=== PATIENT | female | born 1950 | race Hispanic/Latino ===

== ENCOUNTER 2018-06-27 06:20 | Emergency (ER) | payer OTHER ==
[2018-06-27] MEDS ORDERED: MECLIZINE HCL 12.5 MG TAB ONE (07:04)
[2018-06-27 07:10] LABS: Absolute Lymphocytes (CBC) 2.3 K/uL (0.7-4.9); Absolute Monocytes 0.3 K/uL (0.1-1.3); Basophils % 0.6 % (0-1.3); Eosinophils % 1.7 % (0-4.4); MPV 8.9 fL (7.6-11.3); Monocytes % 7.2 % (3.3-12.3); RBC Red Blood Cell Count 4.58 M/uL (3.86-4.86)
[2018-06-27 07:22] LABS: Protime INR 0.9
[2018-06-27 07:27] LABS: ALT/SGPT 33 U/L (12-78); AST/SGOT 17 U/L (15-37); Albumin 4.4 g/dL (3.4-5.0); Alkaline Phosphatase 85 U/L (45-117); BUN Blood Urea Nitrogen 15 mg/dL (7-18); Bicarbonate 28 mmol/L (21-32); Bilirubin Direct < 0.1 mg/dL (0-0.2); Bilirubin Total 0.3 mg/dL (0.2-1.0); CKMB Creatine Kinase MB 1.1 ng/mL (0.3-3.6); Creatine Phosphokinase 87 U/L (26-192); Glucose Level 98 mg/dL (74-106); Lipase 199 U/L (73-393); Magnesium 2.6 mg/dL (1.8-2.4); Potassium 3.8 mmol/L (3.5-5.1); Protein, Total 8.5 g/dL (6.4-8.2); Sodium Level 141 mmol/L (136-145); Troponin (Emerg Dept Use Only) < 0.02 ng/mL (0.0-0.045)
[2018-06-27] MEDS ORDERED: KETOROLAC 30 MG/ML INJ ONE (07:36)
[2018-06-27] MEDS ORDERED: NA CHLORIDE 0.9% 1,000 ML ONE (07:36)
--- NOTE | 2018-06-27 07:54 | ER ---
Nurse's Notes [facility] Name: Fariba Rowland Age: 68 yrs Sex: Female : 1950 Arrival Date: 06/27/2018 Time: 06:28 Bed 7 Private MD: Diagnosis: Dizziness and giddiness;Volume depletion Presentation: 06/27 06:30 Presenting complaint: Patient states: dizziness, headache, sinus pressure started today ak1 when she woke up. pt denies N/V. Transition of care: patient was not received from another setting of care. Onset of symptoms was June 27, 2018. Risk Assessment: Do you want to hurt yourself or someone else? Patient reports no desire to harm self or others. Care prior to arrival: None. 06:30 Method Of Arrival: EMS: [facility] ak1 06:30 Acuity: TRAMAINE 3 ak1 07:37 Initial Sepsis Screen: Does the patient meet any 2 criteria? No. Patient's initial sv sepsis screen is negative. Does the patient have a suspected source of infection? No. Patient's initial sepsis screen is negative. Triage Assessment: 06:32 Headache History: Other pt with hx vertigo stated this episode is similar. General: ak1 Appears uncomfortable, Behavior is calm, cooperative. Pain: Pain level that patient reports is acceptable is 4 out of 10 on a pain scale. Pain began 1 hour ago. Also complains of inability to perform activities of daily living. EENT: Reports sinus pressure. Neuro: Level of Consciousness is awake, alert, obeys commands, Oriented to person, place, time, situation, Osha Inspector are equal bilaterally Moves all extremities. Speech is normal. Cardiovascular: No deficits noted. Respiratory: No deficits noted. GI: No signs and/or symptoms were reported involving the gastrointestinal system. : No signs and/or symptoms were reported regarding the genitourinary system. Derm: No signs and/or symptoms reported regarding the dermatologic system. Musculoskeletal: No signs and/or symptoms reported regarding the musculoskeletal system. Historical: - Allergies: 06:32 No Known Allergies; ak1 - Home Meds: 06:32 Meclizine Oral [Active]; ak1 - PMHx: 06:32 vertigo; ak1 - PSHx: 06:32 None; ak1 - Immunization history:: Adult Immunizations unknown. - Social history:: Smoking status: Patient/guardian denies using tobacco. - Ebola Screening: : No symptoms or risks identified at this time. Screenin:34 Abuse screen: Denies threats or abuse. Denies injuries from another. Nutritional ak1 screening: No deficits noted. Tuberculosis screening: No symptoms or risk factors identified. Fall Risk None identified. Assessment: 06:49 Reassessment: Patient appears in no apparent distress at this time. No changes from ak1 previously documented assessment. see triage assessment. 07:33 General: Appears in no apparent distress. comfortable, well developed, Behavior is sv calm, cooperative, appropriate for age. Pain: Complains of pain in low back area Pain currently is 3 out of 10 on a pain scale. Neuro: Level of Consciousness is awake, alert, obeys commands, Oriented to person, place, time, situation, Moves all extremities. Full function. Respiratory: Respiratory effort is even, unlabored, Respiratory pattern is regular, symmetrical. Derm: Skin is pink, warm \T\ dry. 07:56 Reassessment: Pt to get her IVF before discharge, infusing at this time. sv 08:39 Reassessment: Patient appears in no apparent distress at this time. Patient and/or sv family updated on plan of care and expected duration. Pain level reassessed. Patient is alert, oriented x 3, equal unlabored respirations, skin warm/dry/pink. Patient denies pain at this time. Patient states feeling better. Patient states symptoms have improved. Vital Signs: 06:29 BP 143 / 82 LA Supine (auto/reg); Pulse 69; Resp 20; Temp 99; Pulse Ox 100% on R/A; ak1 Weight 63.05 kg (R); Height 5 ft. 3 in. (160.02 cm) (R); Pain 0/10; 06:35 BP 159 / 87 LA Sitting (auto/reg); Pulse 70; Resp 18; Pulse Ox 99% ; ak1 06:45 BP 132 / 89 LA Standing (auto/reg); Pulse 100; Resp 20; Pulse Ox 100% on R/A; ak1 07:37 BP 155 / 66; Pulse 68; Resp 20; Pulse Ox 99% ; sv 08:30 Pain 0/10; sv 08:39 BP 139 / 88; Pulse 65; Resp 16; Pulse Ox 99% ; sv 06:29 Body Mass Index 24.62 (63.05 kg, 160.02 cm) ak1 NIH Stroke Scale Scores: 06:56 NIHSS Score: 0 kb ED Course: 06:28 Patient arrived in ED. ak1 06:29 Zuleika Warner [facility]-C [facility]. kb 06:29 Joe Dougherty MD is Attending Physician. kb 06:29 Arm band placed on Patient placed in an exam room, on a stretcher, on pulse oximetry, ak1 Patient notified of wait time. 06:31 Triage completed. ak1 06:34 Patient has correct armband on for positive identification. Bed in low position. Call ak1 light in reach. Side rails up X2. Adult w/ patient. Pulse ox on. NIBP on. 06:55 Inserted saline lock: 22 gauge in left antecubital area, using aseptic technique. Blood jd3 collected. 07:22 Manual Differential Sent. sv 07:31 Ute Lee, RN is Primary Nurse. sv 08:37 No provider procedures requiring assistance completed. IV discontinued, intact, sv bleeding controlled, No redness/swelling at site. Pressure dressing applied. Administered Medications: 06:56 Drug: Meclizine 25 mg Route: PO; ak1 07:32 Follow up: Response: No adverse reaction sv 07:31 Drug: NS 0.9% 1000 ml Route: IV; Rate: 1000 ml; Site: left antecubital; sv 08:30 Follow up: Response: No adverse reaction; IV Status: Completed infusion; IV Intake: sv 1000ml 07:31 Drug: TORadol 30 mg Route: IVP; Site: left antecubital; sv 08:30 Follow up: Pain 0/10 Adult; Response: No adverse reaction; Marked relief of symptoms; sv Pain is decreased Intake: 08:30 IV: 1000ml; Total: 1000ml. sv Outcome: 07:53 Discharge ordered by . kb 08:38 Discharged to home via wheelchair, with family. sv 08:38 Condition: stable 08:38 Discharge instructions given to patient, Instructed on discharge instructions, follow up and referral plans. medication usage, Demonstrated understanding of instructions, follow-up care, medications, Prescriptions given X 1. 09:07 Patient left the ED. ss NIH Stroke Scale - NIH Stroke Score Date: 06/27/2018 Time: 06:56 Total Score = 0 1a. Level of Consciousness (LOC) - 0(Alert) 1b. Level of Consciousness (LOC) (Year \T\ Age) - 0(Both) 1c. LOC Commands (Open \T\ Closes Eyes/Handle Finisher) - 0(Both) 2. Best Gaze (Lateral Gaze Paresis) - 0(Normal) 3. Visual Field Loss - 0(No visual loss) 4. Facial Palsy - 0(Normal) 5a. Left Arm: Motor (10-second hold) - 0(No drift) 5b. Right Arm: Motor (10-second hold) - 0(No drift) 6a. Left Leg: Motor (5-second hold - always test supine) - 0(No drift) 6b. Right Leg: Motor (5-second hold - always test supine) - 0(No drift) 7. Limb Ataxia (finger/nose \T\ heel/craig - test with eyes open) - 0(Absent) 8. Sensory Loss (pinprick arms/legs/face) - 0(Normal) 9. Best Language: Aphasia (description/naming/reading) - 0(No aphasia) 10. Dysarthria (speech clarity - read or repeat words) - 0(Normal) 11. Extinction and Inattention (visual/tactile/auditory/spatial/personal) - 0(No abnormality) Initials: kb Signatures: Zuleika Warner, WOOD CUT ENGRAVER-C WOOD CUT ENGRAVER-CkUte Ly, Blank Mallory RN, RN RN ss Jessi Black RN RN ak1 Derrick Cano RN RN jd3
--- NOTE | 2018-06-27 07:54 | EDPHYS ---
Physician Documentation [facility] Name: Fariba Rowland Age: 68 yrs Sex: Female : 1950 Arrival Date: 06/27/2018 Time: 06:28 Bed 7 Private MD: ED Physician Joe Dougherty HPI: 06/27 06:57 This 68 yrs old Female presents to ER via EMS with complaints of Dizziness, kb Headache. 06:57 The patient presents with dizziness. Onset: The symptoms/episode began/occurred 30 kb minute(s) ago. Context: occurred at home, occurred while the patient was getting up from bed, just prior to the episode the patient experienced headache. Modifying factors: The symptoms are alleviated by nothing, the symptoms are aggravated by movement of head, changing position. Associated signs and symptoms: Pertinent positives: headache. Severity of symptoms: At their worst the symptoms were mild moderate in the emergency department the symptoms are unchanged. Patient's baseline: Neuro: alert and fully oriented, Motor: no deficits, Ambulation: walks without assistance, Speech: normal. The patient has experienced similar episodes in the past, a few times, and the symptoms today are exactly the same, to previous vertigo. The patient has not recently seen a physician. Pt reports she has had a headache for a day, feels like ones she has had before, and then had dizziness when she got out of bed this morning to go to the bathroom. Reports these symptoms are the same as she has had before when she was diagnosed with vertigo. Also reports lower back pain that has been going on for a while after moving a bed at home. . Historical: - Allergies: 06:32 No Known Allergies; ak1 - Home Meds: 06:32 Meclizine Oral [Active]; ak1 - PMHx: 06:32 vertigo; ak1 - PSHx: 06:32 None; ak1 - Immunization history:: Adult Immunizations unknown. - Social history:: Smoking status: Patient/guardian denies using tobacco. - Ebola Screening: : No symptoms or risks identified at this time. ROS: 06:56 Constitutional: Negative for fever, chills, and weight loss, Neck: Negative for injury, kb pain, and swelling, Cardiovascular: Negative for chest pain, palpitations, and edema, Respiratory: Negative for shortness of breath, cough, wheezing, and pleuritic chest pain, Abdomen/GI: Negative for abdominal pain, nausea, vomiting, diarrhea, and constipation, : Negative for injury, bleeding, discharge, and swelling, MS/Extremity: Negative for injury and deformity, Skin: Negative for injury, rash, and discoloration. 06:56 ENT: Positive for sinus congestion, sore throat. 06:56 Back: Positive for pain at rest, of the low back area. 06:56 Neuro: Positive for dizziness, headache. Exam: 06:56 Constitutional: This is a well developed, well nourished patient who is awake, alert, kb and in no acute distress. Head/Face: Normocephalic, atraumatic. ENT: Nares patent. No nasal discharge, no septal abnormalities noted. Tympanic membranes are normal and external auditory canals are clear. Oropharynx with no redness, swelling, or masses, exudates, or evidence of obstruction, uvula midline. Mucous membranes moist. Neck: Trachea midline, no thyromegaly or masses palpated, and no cervical lymphadenopathy. Supple, full range of motion without nuchal rigidity, or vertebral point tenderness. No Meningismus. Chest/axilla: Normal chest wall appearance and motion. Nontender with no deformity. No lesions are appreciated. Cardiovascular: Regular rate and rhythm with a normal S1 and S2. No gallops, murmurs, or rubs. Normal PMI, no JVD. No pulse deficits. Respiratory: Lungs have equal breath sounds bilaterally, clear to auscultation and percussion. No rales, rhonchi or wheezes noted. No increased work of breathing, no retractions or nasal flaring. Abdomen/GI: Soft, non-tender, with normal bowel sounds. No distension or tympany. No guarding or rebound. No evidence of tenderness throughout. Back: No spinal tenderness. No costovertebral tenderness. Full range of motion. Skin: Warm, dry with normal turgor. Normal color with no rashes, no lesions, and no evidence of cellulitis. MS/ Extremity: Pulses equal, no cyanosis. Neurovascular intact. Full, normal range of motion. Neuro: Awake and alert, GCS 15, oriented to person, place, time, and situation. Cranial nerves II-XII grossly intact. Motor strength 5/5 in all extremities. Sensory grossly intact. Cerebellar exam normal. Normal gait. 07:00 ECG was reviewed by the Attending Physician. kb Vital Signs: 06:29 BP 143 / 82 LA Supine (auto/reg); Pulse 69; Resp 20; Temp 99; Pulse Ox 100% on R/A; ak1 Weight 63.05 kg (R); Height 5 ft. 3 in. (160.02 cm) (R); Pain 0/10; 06:35 BP 159 / 87 LA Sitting (auto/reg); Pulse 70; Resp 18; Pulse Ox 99% ; ak1 06:45 BP 132 / 89 LA Standing (auto/reg); Pulse 100; Resp 20; Pulse Ox 100% on R/A; ak1 07:37 BP 155 / 66; Pulse 68; Resp 20; Pulse Ox 99% ; sv 08:30 Pain 0/10; sv 08:39 BP 139 / 88; Pulse 65; Resp 16; Pulse Ox 99% ; sv 06:29 Body Mass Index 24.62 (63.05 kg, 160.02 cm) ak1 NIH Stroke Scale Scores: 06:56 NIHSS Score: 0 kb MDM: 06:30 Patient medically screened. kb 06:54 Data reviewed: vital signs, nurses notes. Data interpreted: Pulse oximetry: on room air kb is 100 %. Interpretation: normal. 07:19 ED course: Pt reports decrease in symptoms after meclizine. . kb 07:53 Counseling: I had a detailed discussion with the patient and/or guardian regarding: the kb historical points, exam findings, and any diagnostic results supporting the discharge/admit diagnosis, lab results, the need for outpatient follow up, a family practitioner, to return to the emergency department if symptoms worsen or persist or if there are any questions or concerns that arise at home. 06/27 06:31 Order name: Basic Metabolic Panel; Complete Time: 07:30 kb 06/27 06:31 Order name: CBC with Diff; Complete Time: 08:41 kb 06/27 06:31 Order name: Ckmb; Complete Time: 07:30 kb 06/27 06:31 Order name: CPK; Complete Time: 07:30 kb 06/27 06:31 Order name: Hepatic Function; Complete Time: 07:30 kb 06/27 06:31 Order name: Lipase; Complete Time: 07:30 kb 06/27 06:31 Order name: Magnesium; Complete Time: 07:30 kb 06/27 06:31 Order name: Protime (+inr); Complete Time: 07:23 kb 06/27 06:31 Order name: Ptt, Activated; Complete Time: 07:23 kb 06/27 06:31 Order name: Troponin (emerg Dept Use Only); Complete Time: 07:30 kb 06/27 06:31 Order name: Flu; Complete Time: 07:26 kb 06/27 07:13 Order name: Manual Differential; Complete Time: 08:41 EDMS 04 06:31 Order name: EKG; Complete Time: 06:31 kb 06/27 06:31 Order name: Cardiac monitoring; Complete Time: 06:48 kb 06/27 06:31 Order name: EKG - Nurse/Tech; Complete Time: 06:49 kb 06/27 06:31 Order name: IV Saline Lock; Complete Time: 06:57 kb 06/27 06:31 Order name: Labs collected and sent; Complete Time: 06:57 kb 06/27 06:31 Order name: NPO; Complete Time: 06:49 kb 06/27 06:31 Order name: O2 Per Protocol; Complete Time: 06:49 kb 06/27 06:31 Order name: O2 Sat Monitoring; Complete Time: 06:49 kb 06/27 06:31 Order name: Orthostatics; Complete Time: 06:49 kb EC:00 Rate is 62 beats/min. Rhythm is regular, Normal Sinus Rhythm. QRS [place] is Normal. OR kb interval is normal at 134 msec. QRS interval is normal at 86 msec. QT interval is normal at 432 msec. Interpreted by me. Reviewed by me. Administered Medications: 06:56 Drug: Meclizine 25 mg Route: PO; ak1 07:32 Follow up: Response: No adverse reaction sv 07:31 Drug: NS 0.9% 1000 ml Route: IV; Rate: 1000 ml; Site: left antecubital; sv 08:30 Follow up: Response: No adverse reaction; IV Status: Completed infusion; IV Intake: sv 1000ml 07:31 Drug: TORadol 30 mg Route: IVP; Site: left antecubital; sv 08:30 Follow up: Pain 0/10 Adult; Response: No adverse reaction; Marked relief of symptoms; sv Pain is decreased Disposition: 06/27/18 07:53 Discharged to Home. Impression: Dizziness and giddiness, Volume depletion. - Condition is Stable. - Discharge Instructions: Vertigo, [id number], Dehydration, Adult, [id number]. - Prescriptions for Meclizine 25 mg Oral Tablet - take 1 tablet by ORAL route every 8 hours As needed; 30 tablet. - Medication Reconciliation Form, Thank You Letter, Antibiotic Education, Prescription Opioid Use form. - Follow up: Emergency Department; When: As needed; Reason: Worsening of condition. Follow up: Private Physician; When: 2 - 3 days; Reason: Recheck today's complaints, Continuance of care, Re-evaluation by your physician. NIH Stroke Scale - NIH Stroke Score Date: 06/27/2018 Time: 06:56 Total Score = 0 1a. Level of Consciousness (LOC) - 0(Alert) 1b. Level of Consciousness (LOC) (Year \T\ Age) - 0(Both) 1c. LOC Commands (Open \T\ Closes Eyes/Cold Water Machine Operator) - 0(Both) 2. Best Gaze (Lateral Gaze Paresis) - 0(Normal) 3. Visual Field Loss - 0(No visual loss) 4. Facial Palsy - 0(Normal) 5a. Left Arm: Motor (10-second hold) - 0(No drift) 5b. Right Arm: Motor (10-second hold) - 0(No drift) 6a. Left Leg: Motor (5-second hold - always test supine) - 0(No drift) 6b. Right Leg: Motor (5-second hold - always test supine) - 0(No drift) 7. Limb Ataxia (finger/nose \T\ heel/rcaig - test with eyes open) - 0(Absent) 8. Sensory Loss (pinprick arms/legs/face) - 0(Normal) 9. Best Language: Aphasia (description/naming/reading) - 0(No aphasia) 10. Dysarthria (speech clarity - read or repeat words) - 0(Normal) 11. Extinction and Inattention (visual/tactile/auditory/spatial/personal) - 0(No abnormality) Initials: kb Signatures: Dispatcher [employer] EDMS Zuleika Warner, LANEC LATHING SUPERVISOR-Ute Heard RN RN sv Smirch, Shelby, RN RN ss Jessi Black, RN RN ak1 Corrections: (The following items were deleted from the chart) 07:19 06:57 Pt reports she has had a headache for a day, feels like ones she has had kb before, and then had dizziness when she got out of bed this morning to go to the bathroom. Reports these symptoms are the same as she has had before when she was diagnosed with vertigo.. kb 09:07 07:53 06/27/2018 07:53 Discharged to Home. Impression: Dizziness and giddiness; ss Volume depletion. Condition is Stable. Forms are Medication Reconciliation Form, Thank You Letter, Antibiotic Education, Prescription Opioid Use. Follow up: Emergency Department; When: As needed; Reason: Worsening of condition. Follow up: Private Physician; When: 2 - 3 days; Reason: Recheck today's complaints, Continuance of care, Re-evaluation by your physician. kb
[2018-06-27 08:40] LABS: Blood Morphology Comment NOT SEEN (NOT SEEN); Platelet Estimate ADEQ
[2018-06-27 09:49] VITALS: TEMP 99
[2018-06-27 09:53] VITALS: O2SAT 99
[2018-06-27 09:55] VITALS: BP 139/88
== END 2018-06-27 09:07 | disposition home or self-care (01) ==
LOC: ER 06:20
DX: R42 Dizziness and giddiness (principal); E86.9 Volume depletion, unspecified; R51 Headache
CPT/HCPCS: 96361; 93005; 85025; 80048; 36415; 83735; 82550; 85610; 80076; 85730; 84484; 82553; 83690; 87804 ×2; 96374; 99284; J7030

== ENCOUNTER 2019-05-16 07:05 | Emergency (ER) | payer OTHER ==
[2019-05-16] MEDS ORDERED: MECLIZINE HCL 12.5 MG TAB ONE (07:22)
[2019-05-16] MEDS ORDERED: NA CHLORIDE 0.9% 500 ML ONE (07:22)
[2019-05-16 07:49] LABS: Absolute Lymphocytes (CBC) 1.8 K/uL (0.7-4.9); Basophils % 0.9 % (0-1.3); Hematocrit 37.1 % (36.0-45.0); Lymphocytes % 57.5 % (15.3-44.8); MPV 9.2 fL (7.6-11.3); RBC Red Blood Cell Count 4.01 M/uL (3.86-4.86)
[2019-05-16 08:01] LABS: BUN Blood Urea Nitrogen 14 mg/dL (7-18); Bicarbonate 31 mmol/L (21-32); Glucose Level 95 mg/dL (74-106); Potassium 3.7 mmol/L (3.5-5.1); Sodium Level 142 mmol/L (136-145); Troponin (Emerg Dept Use Only) < 0.02 ng/mL (0.0-0.045)
--- NOTE | 2019-05-16 08:42 | RAD REPORT ---
EXAM DESCRIPTION: CT - Head Brain Wo Cont - 05/16/2019 7:53 am CLINICAL HISTORY: DIZZINESS Headache, drowsiness COMPARISON: Head Brain Wo Cont dated 09/13/2016; HEAD BRAIN W O CONTRAST dated 09/09/2014 TECHNIQUE: All CT scans are performed using dose optimization technique as appropriate and may inclu de automated exposure control or mA/KV adjustment according to patient size. FINDINGS: No intracranial hemorrhage, hydrocephalus or extra-axial fluid collection.Mild generalized brain atrophy is present with mild periventricular and deep white matter chronic microvascular ische tony changes.No areas of brain edema or evidence of midline shift. The paranasal sinuses and mastoids are clear. The calvarium is intact. IMPRESSION: No acute intracranial abnormality.
--- NOTE | 2019-05-16 09:41 | RAD REPORT ---
EXAM DESCRIPTION: CT - Head angio - 05/16/2019 9:10 am CLINICAL HISTORY: vertigo;Dizziness Headache, drowsiness, dizziness COMPARISON: Head Brain Wo Cont dated 05/16/2019; Head Brain Wo Cont dated 09/13/2016 TECHNIQUE: CT angiography of the head was performed with MIPs. All CT scans are performed using dose optimization technique as appropriate and may include automated exposure control or mA/KV adjustment according to patient size. FINDINGS: No evidence of aneurysm is detected. No flow-limiting stenosis or vascular malformation id entified. Antegrade flow is seen in the vertebral arteries. The vertebral arteries are codominant. The visualized dural venous sinuses are patent. IMPRESSION: No significant flow abnormality is detected.
--- NOTE | 2019-05-16 10:06 | ER ---
Nurse's Notes [facility] Name: Fariba Rowland Age: 69 yrs Sex: Female : 1950 Arrival Date: 05/16/2019 Time: 07:11 Bed 17 Private MD: Diagnosis: Vertigo Presentation: 05/16 07:00 Presenting complaint: EMS states: Pt c/o dizziness and pressure all over that started rb1 this morning. Last BM is unknown. NKA, no medications, she does all natural remedies. A \T\ O x 4. 07:00 Transition of care: patient was not received from another setting of care. Onset of rb1 symptoms was May 16, 2019. Risk Assessment: Do you want to hurt yourself or someone else? Patient reports no desire to harm self or others. Initial Sepsis Screen: Does the patient meet any 2 criteria? No. Patient's initial sepsis screen is negative. Does the patient have a suspected source of infection? No. Patient's initial sepsis screen is negative. Care prior to arrival: None. 07:00 Method Of Arrival: EMS: [facility] rb1 07:00 Acuity: TRAMAINE 3 rb1 Triage Assessment: 07:00 General: Appears uncomfortable, Behavior is restless, Denies fever, feeling ill. Pain: rb1 Denies pain. Neuro: Level of Consciousness is awake, alert, obeys commands, Oriented to person, place, time, situation, Reports dizziness. Neuro: Receiving Teller are equal bilaterally Moves all extremities. Gait is pt. reports that she walks at home.. Speech is normal, Facial symmetry appears normal, Pupils are PERRLA. Cardiovascular: Capillary refill < 3 seconds is brisk in bilateral fingers. Respiratory: Airway is patent Respiratory effort is even, unlabored, Respiratory pattern is regular, symmetrical. GI: No signs and/or symptoms were reported involving the gastrointestinal system. : No signs and/or symptoms were reported regarding the genitourinary system. Derm: Skin is pink, warm \T\ dry. Musculoskeletal: Range of motion: intact in all extremities. Historical: - Allergies: 07:00 No Known Allergies; rb1 - Home Meds: 07:00 Meclizine Oral [Active]; rb1 - PMHx: 07:00 Vertigo; rb1 - PSHx: 07:00 None; rb1 - Immunization history:: Adult Immunizations unknown. - Coronavirus screen:: The patient has NOT traveled to [place] in the past 14 days. The patient has NOT had contact with known/suspected case of Coronavirus?. - Family history:: not pertinent. - Social history:: Smoking status: Patient/guardian denies using. - Hospitalizations: : No recent hospitalization is reported. - Ebola Screening: : Patient negative for fever greater than or equal to 101.5 degrees Fahrenheit, and additional compatible Ebola Virus Disease symptoms. Screenin:00 Abuse screen: Denies threats or abuse. Nutritional screening: No deficits noted. rb1 Tuberculosis screening: No symptoms or risk factors identified. Fall Risk None identified. Assessment: 07:00 General: See triage assessment. rb1 08:00 Reassessment: Patient appears in no apparent distress at this time. No changes from rb1 previously documented assessment. 09:00 Reassessment: Patient appears in no apparent distress at this time. Patient and/or rb1 family updated on plan of care and expected duration. Pain level reassessed. Patient is alert, oriented x 3, equal unlabored respirations, skin warm/dry/pink. Dizziness has decreased. 10:00 Reassessment: Patient appears in no apparent distress at this time. No changes from rb1 previously documented assessment. Vital Signs: 07:00 BP 152 / 82; Pulse 90; Resp 19; Temp 98.(O); Pulse Ox 97% on R/A; Weight 67.13 kg (R); rb1 Height 5 ft. 7 in. (170.18 cm) (R); Pain 0/10; 08:00 BP 136 / 71; Pulse 74; Resp 17; Pulse Ox 100% on R/A; Pain 0/10; rb1 09:00 BP 141 / 67; Pulse 82; Resp 18; Pulse Ox 98% ; rb1 10:00 BP 141 / 67; Pulse 82; Resp 17; Pulse Ox 98% on R/A; rb1 07:00 Body Mass Index 23.18 (67.13 kg, 170.18 cm) rb1 ED Course: 07:00 Arm band placed on right wrist. rb1 07:00 Patient has correct armband on for positive identification. Bed in low position. Call rb1 light in reach. Side rails up X 1. Pulse ox on. NIBP on. Warm blanket given. 07:11 Patient arrived in ED. rb1 07:11 Hollis Hartley MD is Attending Physician. rn 07:14 Triage completed. rb1 07:30 Inserted saline lock: 22 gauge in right antecubital area, using aseptic technique. rb1 Blood collected. 07:54 CT Head Brain wo Cont In Process Unspecified. EDMS 08:16 Sudha Henry, RN is Primary Nurse. rb1 09:29 CT Head Angio In Process Unspecified. EDMS 10:04 Edin Bean MD is Referral Physician. rn 10:30 No provider procedures requiring assistance completed. IV discontinued, intact, rb1 bleeding controlled, No redness/swelling at site. Pressure dressing applied. Administered Medications: 07:20 Drug: Meclizine 50 mg Route: PO; rb1 08:10 Follow up: Response: No adverse reaction; Marked relief of symptoms rb1 07:30 Drug: NS 0.9% 500 ml Route: IV; Rate: bolus; Site: right antecubital; rb1 Outcome: 10:05 Discharge ordered by MD. rn 10:31 Discharged to home via wheelchair, with family. rb1 10:31 Condition: stable 10:31 Discharge instructions given to patient, Instructed on discharge instructions, follow up and referral plans. medication usage, Demonstrated understanding of instructions, follow-up care, medications, Prescriptions given X 1. 10:32 Patient left the ED. rb1 Signatures: Dispatcher [employer] EDWV Hollis Hartley MD MD rn Barber, Rebecca, RN RN rb1
--- NOTE | 2019-05-16 10:06 | EDPHYS ---
Physician Documentation [facility] Name: Fariba Rowland Age: 69 yrs Sex: Female : 1950 Arrival Date: 05/16/2019 Time: 07:11 Bed 17 Private MD: ED Physician Hollis Hartley HPI: 05/16 07:32 This 69 yrs old Female presents to ER via EMS with complaints of Dizziness. rn 07:32 The patient presents with dizziness, sense of spinning, vertigo. Onset: The rn symptoms/episode began/occurred this morning. Context: occurred at home, occurred while the patient was getting up from bed, just prior to the episode the patient experienced no apparent symptoms. Modifying factors: The symptoms are alleviated by nothing, the symptoms are aggravated by movement of head, changing position. Severity of symptoms: At their worst the symptoms were moderate in the emergency department the symptoms are unchanged. The patient has experienced similar episodes in the past, several times. The patient has not recently seen a physician. Reports dizziness when getting up from bed this morning, reports feels dizzy no matter what she does but worse with change in position and head movement. No focal neurological problems or complaints. No chest pain/sob/abd pain/vomiting. Reports feels "pressure all over body". Historical: - Allergies: 07:00 No Known Allergies; rb1 - Home Meds: 07:00 Meclizine Oral [Active]; rb1 - PMHx: 07:00 Vertigo; rb1 - PSHx: 07:00 None; rb1 - Immunization history:: Adult Immunizations unknown. - Coronavirus screen:: The patient has NOT traveled to [place] in the past 14 days. The patient has NOT had contact with known/suspected case of Coronavirus?. - Family history:: not pertinent. - Social history:: Smoking status: Patient/guardian denies using. - Hospitalizations: : No recent hospitalization is reported. - Ebola Screening: : Patient negative for fever greater than or equal to 101.5 degrees Fahrenheit, and additional compatible Ebola Virus Disease symptoms. ROS: 07:32 Constitutional: Negative for fever, chills, and weight loss, Eyes: Negative for injury, rn pain, redness, and discharge, Neck: Negative for injury, pain, and swelling, Cardiovascular: Negative for chest pain, palpitations, and edema, Respiratory: Negative for shortness of breath, cough, wheezing, and pleuritic chest pain, Abdomen/GI: Negative for abdominal pain, nausea, vomiting, diarrhea, and constipation, MS/Extremity: Negative for injury and deformity, Skin: Negative for injury, rash, and discoloration, Neuro: Negative for headache, weakness, numbness, tingling, and seizure. Exam: 07:32 Constitutional: This is a well developed, well nourished patient who is awake, alert, rn anxious, eyes closed Head/Face: Normocephalic, atraumatic. Eyes: Pupils equal round and reactive to light, extra-ocular motions intact. Lids and lashes normal. Conjunctiva and sclera are non-icteric and not injected. Cornea within normal limits. Periorbital areas with no swelling, redness, or edema. ENT: MMM Neck: Trachea midline, no thyromegaly or masses palpated, and no cervical lymphadenopathy. Supple, full range of motion without nuchal rigidity, or vertebral point tenderness. No Meningismus. Cardiovascular: Regular rate and rhythm. No pulse deficits. Respiratory: No increased work of breathing, no retractions or nasal flaring. Abdomen/GI: soft, non-tender, non-distended MS/ Extremity: Pulses equal, no cyanosis. Neurovascular intact. Full, normal range of motion. Equal circumference. Neuro: Awake and alert, GCS 15, oriented to person, place, time, and situation. Cranial nerves II-XII grossly intact. Motor strength 5/5 in all extremities. Sensory grossly intact. Cerebellar exam normal. + dizziness worse with rotation of head to left. 10:03 ECG was reviewed by the Attending Physician. rn Vital Signs: 07:00 BP 152 / 82; Pulse 90; Resp 19; Temp 98.(O); Pulse Ox 97% on R/A; Weight 67.13 kg (R); rb1 Height 5 ft. 7 in. (170.18 cm) (R); Pain 0/10; 08:00 BP 136 / 71; Pulse 74; Resp 17; Pulse Ox 100% on R/A; Pain 0/10; rb1 09:00 BP 141 / 67; Pulse 82; Resp 18; Pulse Ox 98% ; rb1 10:00 BP 141 / 67; Pulse 82; Resp 17; Pulse Ox 98% on R/A; rb1 07:00 Body Mass Index 23.18 (67.13 kg, 170.18 cm) rb1 MDM: 07:11 Patient medically screened. rn 10:03 Differential diagnosis: generalized weakness, hypovolemia, idiopathic dizziness, rn vertigo. Data reviewed: vital signs, nurses notes, lab test result(s), EKG, radiologic studies, CT scan, and as a result, I will discharge patient. Test interpretation: by ED physician or midlevel provider: ECG. Counseling: I had a detailed discussion with the patient and/or guardian regarding: the historical points, exam findings, and any diagnostic results supporting the discharge/admit diagnosis, lab results, radiology results, the need for outpatient follow up, to return to the emergency department if symptoms worsen or persist or if there are any questions or concerns that arise at home. Response to treatment: the patient's symptoms have markedly improved after treatment, and as a result, I will discharge patient. Special discussion: I discussed with the patient/guardian in detail that at this point there is no indication for admission to the hospital. It is understood, however, that if the symptoms persist or worsen the patient needs to return immediately for re-evaluation. 05/16 07:13 Order name: CBC with Diff rn 05/16 07:13 Order name: Basic Metabolic Panel; Complete Time: 08:29 rn 05/16 07:13 Order name: CT Head Brain wo Cont; Complete Time: 09:43 rn 05/16 07:13 Order name: Troponin (emerg Dept Use Only); Complete Time: 08:29 rn 05/16 07:13 Order name: Urine Microscopic Only rn 05/16 10:29 Order name: CBC Smear Scan EDNC 05/16 07:13 Order name: IV Start; Complete Time: 07:36 rn 05/16 07:13 Order name: EKG; Complete Time: 07:14 rn 05/16 07:13 Order name: EKG - Nurse/Tech; Complete Time: 08:50 rn 05/16 07:13 Order name: Urine Dipstick-Ancillary (obtain specimen); Complete Time: 10:30 rn 05/16 08:39 Order name: CT Head Angio; Complete Time: 09:43 rn EC:03 Rate is 73 beats/min. Rhythm is regular. QRS [place] is Normal. SD interval is normal. QRS rn interval is normal. QT interval is normal. No Q waves. T waves are Normal. No ST changes noted. Clinical impression: Normal ECG. Interpreted by me. Reviewed by me. Administered Medications: 07:20 Drug: Meclizine 50 mg Route: PO; rb1 08:10 Follow up: Response: No adverse reaction; Marked relief of symptoms rb1 07:30 Drug: NS 0.9% 500 ml Route: IV; Rate: bolus; Site: right antecubital; rb1 Disposition: 05/16/19 10:05 Discharged to Home. Impression: Vertigo. - Condition is Stable. - Discharge Instructions: Vertigo. - Prescriptions for Meclizine 25 mg Oral Tablet - take 1 tablet by ORAL route every 8 hours As needed; 30 tablet. - Medication Reconciliation Form, Thank You Letter, Antibiotic Education, Prescription Opioid Use form. - Follow up: Edin Bean MD; When: As needed; Reason: Recheck today's complaints, Re-evaluation by your physician. - Problem is chronic. - Symptoms have improved. Signatures: Dispatcher [employer] EDMS Hollis Hartley MD MD rn Barber, Rebecca, RN RN rb1 Corrections: (The following items were deleted from the chart) 10:32 10:05 05/16/2019 10:05 Discharged to Home. Impression: Vertigo. Condition is Stable. rb1 Forms are Medication Reconciliation Form, Thank You Letter, Antibiotic Education, Prescription Opioid Use. Follow up: Edin Bean; When: As needed; Reason: Recheck today's complaints, Re-evaluation by your physician. Problem is chronic. Symptoms have improved. rn
[2019-05-16 10:29] LABS: Blood Morphology Comment NOT SEEN (NOT SEEN); Platelet Estimate ADEQ; Urine White Blood Cell Casts OK
[2019-05-16 10:34] LABS: Urine Bacteria <20 /HPF (<20); Urine RBC <5 /HPF (NONE SEEN)
[2019-05-16 10:35] LABS: Urine Culture Reflex Order NOT NEEDED
[2019-05-16 10:50] VITALS: BP 141/67; O2SAT 98
--- NOTE | 2019-05-16 15:25 | EKG ---
Test Date: 2019-05-16 Test Time: 08:37:01 Rn Medical Inpatient Services: [facility] MEASUREMENT RESULTS: Intervals: Rate: 73 MD: 142 QRSD: 82 QT: 426 QTc: 469 Hermann: P: 49 MD: 142 QRS: 6 T: 28 INTERPRETIVE STATEMENTS: Normal sinus rhythm Normal ECG Compared to ECG 06/27/2018 06:45:15 Atrial premature complex(es) no longer present Electronically Signed On 05-16-19 15:24:46 PRODUCTION GRADER by Fercho Appiah
== END 2019-05-16 10:32 | disposition home or self-care (01) ==
LOC: ER 07:05
DX: R42 Dizziness and giddiness (principal)
CPT/HCPCS: 93005; 85025; 80048; 36415; 81015; 84484; 70450; 70496; 99284; J7040; J8597

== ENCOUNTER 2020-11-06 07:32 | Emergency (ER) | payer OTHER ==
[2020-11-06 08:11] LABS: Absolute Lymphocytes (CBC) 1.5 K/uL (0.7-4.9); Basophils % 0.8 % (0-1.3); Hematocrit 39.4 % (36.0-45.0); Lymphocytes % 35.8 % (15.3-44.8); MPV 8.6 fL (7.6-11.3); RBC Red Blood Cell Count 4.24 M/uL (3.86-4.86)
[2020-11-06 08:20] LABS: Potassium 4.1 mmol/L (3.5-5.1)
--- NOTE | 2020-11-06 09:54 | RAD REPORT ---
EXAM DESCRIPTION: CTAbdomen Pelvis W Contrast - 11/06/2020 9:12 am CLINICAL HISTORY: Abdominal pain. ABD PAIN COMPARISON: CT ABD PELVIS W CONTRAST dated 03/19/2013 TECHNIQUE: Biphasic CT imaging of the abdomen and pelvis was performed with 100 ml non-ionic IV cont rast. All CT scans are performed using dose optimization technique as appropriate and may include automated exposure control or mA/KV adjustment according to patient size. FINDINGS: The lung bases are clear. Several low-density liver lesions which have benign imaging features. The gallbladder is unremarkable . The adrenal glands are unremarkable. The pancreas is unremarkable. No stones or hydronephrosis. No ureteral calculi. The bladder is unremarkable. No adnexal masses. Scattered fluid levels in the colon and moderate stool. No bowel obstruction. No suspicious bony findings. Remote appearing L5 compression fracture. IMPRESSION: No acute intra-abdominal or pelvic finding. Question constipation but no bowel obstructi on.
--- NOTE | 2020-11-06 09:57 | ER ---
Nurse's Notes [facility] Name: Fariba Rowland Age: 70 yrs Sex: Female : 1950 Arrival Date: 11/06/2020 Time: 07:34 Bed Waiting Private MD: None, None Diagnosis: Constipation;Acute sinusitis, unspecified Presentation: 11/06 07:40 Chief complaint: Patient states: congestion, headache, sinus pressure, nausea, sore aa5 throat this morning. 07:40 Method Of Arrival: Wheelchair aa5 07:40 Coronavirus screen: congestion, headache. Ebola Screen: Patient negative for fever aa5 greater than or equal to 101.5 degrees Fahrenheit, and additional compatible Ebola Virus Disease symptoms. Initial Sepsis Screen: Does the patient meet any 2 criteria? No. Patient's initial sepsis screen is negative. Does the patient have a suspected source of infection? Yes:. Risk Assessment: Do you want to hurt yourself or someone else? Patient reports no desire to harm self or others. Onset of symptoms was October 2020. 07:40 Acuity: TRAMAINE 4 aa5 Historical: - Allergies: 07:40 No Known Allergies; aa5 - Home Meds: 07:40 none [Active]; aa5 - PMHx: 07:40 None; aa5 - PSHx: 07:40 None; aa5 - Immunization history:: Client reports having NOT received the Covid vaccine. - Social history:: Smoking status: Patient denies any tobacco usage or history of. Vital Signs: 07:41 BP 157 / 71; Pulse 70; Resp 18 S; Temp 96.9(TE); Pulse Ox 98% on R/A; Weight 66.22 kg aa5 (R); Height 5 ft. 3 in. (160.02 cm) (R); 07:41 Body Mass Index 25.86 (66.22 kg, 160.02 cm) aa5 ED Course: 07:34 Patient arrived in ED. as 07:40 None, None is Private Physician. as 07:40 Arm band placed on. aa5 07:49 [facility] Warner [facility]C [facility] kb 07:49 Nasir Blanco MD is Attending Physician. kb 09:14 CT Abd/Pelvis - IV Contrast Only In Process Unspecified. EDMS 10:05 No provider procedures requiring assistance completed. Patient did not have IV access aa5 during this emergency room visit. 13:04 Triage completed. aa5 Administered Medications: No medications were administered Outcome: 09:57 Discharge ordered by . avery 10:05 Discharged to home via wheelchair, with family. aa5 10:05 Condition: stable 10:05 Discharge instructions given to patient, Instructed on discharge instructions, follow up and referral plans. Demonstrated understanding of instructions, follow-up care. 10:09 Patient left the ED. kb Signatures: Dispatcher [employer] EDZuleika Salvador, BLANKET BINDER-C BLANKET BINDER-Ckb Lacey Huston Audri, RN RN aa5 Corrections: (The following items were deleted from the chart) 13:13 07:40 Allergies: PENICILLINS; aa5 aa5 13: 07:40 Home Meds: atorvastatin oral; aa5 aa5 13: 07:40 Home Meds: Omeprazole Oral; aa5 aa5 13: 07:40 Home Meds: Vascepa oral; aa5 aa5 13: 07:40 PMHx: Vertigo; aa5 aa5 13: 07:40 PMHx: high cholesterol; aa5 aa5 13: 07:40 PMHx: GERD; aa5 aa5 13: 07:40 PMHx: Asthma; aa5 aa5 13: 07:40 PSHx: Appendectomy; aa5 aa5 13:14 07:41 BP 152 / 84; Pulse 83bpm; Resp 18bpm; Spontaneous; Pulse Ox 99% RA; Temp 97.7F aa5 Temporal; 108.86 kg Reported; Height 5 ft. 9 in. Reported; BMI: 35.4; Pain 9/10; aa5 13:22 07:40 Immunization history: Client reports receiving the 2nd dose of the Covid vaccine, aa5 aa5
--- NOTE | 2020-11-06 09:58 | EDPHYS ---
Physician Documentation [facility] Name: Fariba Rowland Age: 70 yrs Sex: Female : 1950 Arrival Date: 11/06/2020 Time: 07:34 Bed Waiting Private MD: None, None ED Physician Nasir Blanco HPI: 11/06 07:51 This 70 yrs old Female presents to ER via Unassigned with complaints of kb Congestion, Headache. 07:51 The patient or guardian reports flu symptoms, myalgias. Onset: The symptoms/episode kb began/occurred this morning. Severity of symptoms: At their worst the symptoms were mild, moderate, in the emergency department the symptoms are unchanged. Modifying factors: The symptoms are alleviated by nothing, the symptoms are aggravated by nothing. Associated signs and symptoms: Pertinent positives: nausea, rhinorrhea, sore throat. The patient has not experienced similar symptoms in the past. The patient has not recently seen a physician. Patient reports sinus congestion and pressure, headache, body aches, nausea, sore throat that began this morning. Denies fever. Patient has not had a Covid exposure she has not had a Covid vaccine. Reports uncomfortable feeling in lateral abdomen bilaterally. Historical: - Allergies: 07:40 No Known Allergies; aa5 - Home Meds: 07:40 none [Active]; aa5 - PMHx: 07:40 None; aa5 - PSHx: 07:40 None; aa5 - Immunization history:: Client reports having NOT received the Covid vaccine. - Social history:: Smoking status: Patient denies any tobacco usage or history of. ROS: 07:51 Respiratory: Negative for shortness of breath, cough, wheezing, and pleuritic chest kb pain. 07:51 Constitutional: Positive for body aches, malaise. 07:51 ENT: Positive for rhinorrhea, sinus congestion, sinus pain, sore throat. 07:51 Abdomen/GI: Positive for nausea, Negative for abdominal pain, vomiting, diarrhea. 07:51 Neuro: Positive for headache. 07:51 All other systems are negative. Exam: 07:53 Constitutional: This is a well developed, well nourished patient who is awake, alert, kb and in no acute distress. Head/Face: Normocephalic, atraumatic. ENT: Moist Mucous membranes Cardiovascular: Regular rate and rhythm with a normal S1 and S2. No gallops, murmurs, or rubs. No pulse deficits. Respiratory: Respirations even and unlabored. No increased work of breathing, no retractions or nasal flaring. Abdomen/GI: Soft, non-tender. No distention Skin: Warm, dry with normal turgor. Normal color. MS/ Extremity: Pulses equal, no cyanosis. Neurovascular intact. Full, normal range of motion. Neuro: Awake and alert, GCS 15, oriented to person, place, time, and situation. Moves all extremities. Normal gait. Psych: Awake, alert, with orientation to person, place and time. Behavior, mood, and affect are within normal limits. Vital Signs: 07:41 BP 157 / 71; Pulse 70; Resp 18 S; Temp 96.9(TE); Pulse Ox 98% on R/A; Weight 66.22 kg aa5 (R); Height 5 ft. 3 in. (160.02 cm) (R); 07:41 Body Mass Index 25.86 (66.22 kg, 160.02 cm) aa5 MDM: 07:49 Patient medically screened. kb 07:53 Data reviewed: vital signs, nurses notes. Data interpreted: Pulse oximetry: on room air kb is 98 %. Interpretation: normal. 09:57 Counseling: I had a detailed discussion with the patient and/or guardian regarding: the kb historical points, exam findings, and any diagnostic results supporting the discharge/admit diagnosis, lab results, radiology results, the need for outpatient follow up, a family practitioner, to return to the emergency department if symptoms worsen or persist or if there are any questions or concerns that arise at home. 11/06 07:54 Order name: COVID-19 : Document "Date of Symptom Onset" if Symptomatic. kb 11/06 07:54 Order name: CBC with Diff; Complete Time: 08:20 kb 11/06 07:54 Order name: Basic Metabolic Panel; Complete Time: 08:30 kb 11/06 08:31 Order name: CT Abd/Pelvis - IV Contrast Only; Complete Time: 09:56 kb 11/06 09:16 Order name: SARS-COV-2 RT PCR; Complete Time: 09:17 EDMS 11/06 07:54 Order name: IV Start kb Administered Medications: No medications were administered Disposition: 11/07 07:16 Co-signature as Attending Physician, Nasir Blanco MD I agree with the assessment and kdr plan of care. Disposition Summary: 11/06/20 09:57 Discharge Ordered Location: Home kb Condition: Stable kb Diagnosis - Constipation kb - Acute sinusitis, unspecified kb Followup: kb - With: Emergency Department - When: As needed - Reason: Worsening of condition Followup: kb - With: Private Physician - When: 2 - 3 days - Reason: Recheck today's complaints, Continuance of care, Re-evaluation by your physician Discharge Instructions: - Discharge Summary Sheet kb - Constipation, Adult, [id number] kb - Sinusitis, Adult, [id number] kb Forms: - Medication Reconciliation Form kb - Thank You Letter kb - Antibiotic Education kb - Prescription Opioid Use kb Signatures: Dispatcher [employer] EDMS Zuleika Warner, MARINE SUPERINTENDENT-C MARINE SUPERINTENDENT-Nasir Kumari MD MD [facility] Katerin Price RN RN aa5 Corrections: (The following items were deleted from the chart) 11/06 08:26 07:55 CORONAVIRUS ordered. EDNV EDMS 13:13 07:40 Allergies: PENICILLINS; aa5 aa5 13:13 07:40 Home Meds: atorvastatin oral; aa5 aa5 13:13 07:40 Home Meds: Omeprazole Oral; aa5 aa5 13:13 07:40 Home Meds: Vascepa oral; aa5 aa5 13:13 07:40 PMHx: Vertigo; aa5 aa5 13:13 07:40 PMHx: high cholesterol; aa5 aa5 13:13 07:40 PMHx: GERD; aa5 aa5 13:13 07:40 PMHx: Asthma; aa5 aa5 13:13 07:40 PSHx: Appendectomy; aa5 aa5 13:22 07:40 Immunization history: Client reports receiving the 2nd dose of the Covid vaccine, aa5 aa5
[2020-11-06 11:11] VITALS: BP 152/84; TEMP 97.7; O2SAT 99
== END 2020-11-06 10:09 | disposition home or self-care (01) ==
LOC: ER 07:32
DX: J01.90 Acute sinusitis, unspecified (principal); K59.00 Constipation, unspecified; Z20.822 Contact with and (suspected) exposure to COVID-19
CPT/HCPCS: 85025; 80048; 36415; 74177; 99283; U0003; Q9967

== ENCOUNTER 2020-11-20 23:16 | Observation (INO) | payer OTHER ==
[2020-11-21 03:32] LABS: Basophils % 0.6 % (0-1.3); Hematocrit 38.1 % (36.0-45.0); Lymphocytes % 20.8 % (15.3-44.8); RBC Red Blood Cell Count 4.24 M/uL (3.86-4.86)
[2020-11-21 04:01] LABS: Urine Blood Trace-intact (Negative); Urine Glucose Negative (Negative); Urine Protein 2+ (Negative); Urine Specific Gravity 1.015 (1.005-1.030); Urine pH 6.5 (5.0-7.0)
[2020-11-21 04:04] LABS: ALT/SGPT 29 U/L (12-78); AST/SGOT 30 U/L (15-37); Albumin 3.1 g/dL (3.4-5.0); Alkaline Phosphatase 49 U/L (45-117); BUN Blood Urea Nitrogen 17 mg/dL (7-18); Bicarbonate 28 mmol/L (21-32); Bilirubin Direct 0.2 mg/dL (0-0.2); Bilirubin Total 0.7 mg/dL (0.2-1.0); Ferritin 795.7 ng/mL (8-388); Glucose Level 87 mg/dL (74-106); Lipase 318 U/L (73-393); Potassium 3.5 mmol/L (3.5-5.1); Protein, Total 7.9 g/dL (6.4-8.2); Sodium Level 138 mmol/L (136-145); Troponin (Emerg Dept Use Only) < 0.02 ng/mL (0.0-0.045)
[2020-11-21 05:33] LABS: Urine Bacteria 20-50 /HPF (<20); Urine RBC <5 /HPF (NONE SEEN); Urine Urothelial Cells <5 /HPF (NONE SEEN)
--- NOTE | 2020-11-21 09:04 | RAD REPORT ---
EXAM DESCRIPTION: RAD - Chest Single View - 11/21/2020 2:58 am CLINICAL HISTORY: COUGH Chest pain. COMPARISON: Chest Single View dated 09/14/2016; CHEST SINGLE VIEW dated 03/19/2013; Chest For Pe Nicole o dated 11/21/2020 FINDINGS: Portable technique limits examination quality. Mild bilateral interstitial lung opacities are noted. The heart is normal in size. No displaced fract ures. IMPRESSION: Mild interstitial lung opacity bilaterally likely related to viral infection.
--- NOTE | 2020-11-21 09:41 | ER ---
Nurse's Notes [facility] Name: Fariba Rowland Age: 70 yrs Sex: Female : 1950 Arrival Date: 11/20/2020 Time: 23:20 Bed 13 Private MD: Diagnosis: Coronavirus infection, unspecified;Pneumonia due to SARS-associated coronavirus;Other abdominal pain;Dyspnea;Weakness Presentation: 11/21 00:26 Chief complaint: Patient states: Pt c/o diarrhea for 2 days. States she is also having wg mid thoracic back discomfort that recently started. Pt denies CP, N/V, dizziness. Pt states she has lower abdominal discomfort that started with the diarrhea. Coronavirus screen: Client denies travel out of the [place] in the last 14 days. At this time, the client does not indicate any symptoms associated with coronavirus-19. Ebola Screen: Patient denies exposure to infectious person. Patient denies travel to an Ebola-affected area in the 21 days before illness onset. Initial Sepsis Screen: Does the patient meet any 2 criteria? No. Patient's initial sepsis screen is negative. Initial Sepsis Screen: Does the patient have a suspected source of infection? No. Patient's initial sepsis screen is negative. Risk Assessment: Do you want to hurt yourself or someone else? Patient reports no desire to harm self or others. Onset of symptoms was November 18, 2020. Care prior to arrival: None. Activity prior to arrival: None. Mechanism of Injury: No Mechanism of Injury. Transition of care: patient was not received from another setting of care. 00:26 Method Of Arrival: Ambulatory 00:26 Acuity: TRAMAINE 3 00:39 Note Pt awkwardly slumped in W/C due to abd discomfort. Potentially the reason for her wg back discomfort. Daughter with patient but a poor historian. 00:42 Note Pt denies headache at this time. Pt also denies SOB. wg Triage Assessment: 00:33 Headache History: Denies prior headaches. General: Appears uncomfortable, Behavior is wg cooperative. Pain: Complains of pain in abdomen. Pain: Pain currently is 5 out of 10 on a pain scale. Pain began 2-3 days ago. Pain: Also complains of no other associated symptoms. Neuro: No deficits noted. Historical: - Allergies: 00:33 No Known Drug Allergies; wg - Home Meds: 08:05 None [Active]; jl7 - PMHx: 08:05 None; jl7 - PSHx: 08:05 None; jl7 - Immunization history:: Adult Immunizations. - Social history:: Patient/guardian denies using tobacco products, Smoking status: Patient denies any tobacco usage or history of. - Code Status:: Full code. - History obtained from: daughter. - Unable to obtain history due to: Brother will be here soon and will be able to share information on PMH and medications . - Coronavirus screen:: The patient has NOT traveled to [place] in the past 14 days. The patient has NOT had contact with known/suspected case of Coronavirus?. - Ebola Screening: : Patient negative for fever greater than or equal to 101.5 degrees Fahrenheit, and additional compatible Ebola Virus Disease symptoms Patient denies exposure to infectious person Patient denies travel to an Ebola-affected area in the 21 days before illness onset No symptoms or risks identified at this time. Screenin:41 Abuse screen: Denies threats or abuse. Denies injuries from another. Nutritional sh9 screening: No deficits noted. Tuberculosis screening: No symptoms or risk factors identified. Fall Risk None identified. Assessment: 02:38 General: Appears distressed, uncomfortable, Behavior is cooperative. Pain: Complains of sh9 pain in abdomen Pain does not radiate. Pain currently is 6 out of 10 on a pain scale. Quality of pain is described as crampy. Neuro: No deficits noted. Cardiovascular: No deficits noted. Respiratory: No deficits noted. GI: No deficits noted. GI: No signs and/or symptoms were reported involving the gastrointestinal system. Reports lower abdominal pain, upper abdominal pain. : No deficits noted. EENT: No deficits noted. Derm: No deficits noted. Musculoskeletal: No deficits noted. 05:47 Reassessment: Patient states feeling better. Patient states symptoms have improved. sh9 07:00 Reassessment: Patient appears in no apparent distress at this time. No changes from jl7 previously documented assessment. Patient and/or family updated on plan of care and expected duration. Pain level reassessed. Patient is alert, oriented x 3, equal unlabored respirations, skin warm/dry/pink. Patient denies pain at this time. 08:00 Reassessment: Patient appears in no apparent distress at this time. No changes from jl7 previously documented assessment. Patient and/or family updated on plan of care and expected duration. Pain level reassessed. Patient is alert, oriented x 3, equal unlabored respirations, skin warm/dry/pink. 09:00 Reassessment: Patient appears in no apparent distress at this time. No changes from jl7 previously documented assessment. Patient and/or family updated on plan of care and expected duration. Pain level reassessed. Patient is alert, oriented x 3, equal unlabored respirations, skin warm/dry/pink. 10:00 Reassessment: Patient appears in no apparent distress at this time. No changes from jl7 previously documented assessment. Patient and/or family updated on plan of care and expected duration. Pain level reassessed. Patient is alert, oriented x 3, equal unlabored respirations, skin warm/dry/pink. 11:15 Reassessment: Pt moved to ER room 13, transferred to hospital bed with standby assist, jl7 report given to BABITA Mix. Vital Signs: 00:26 BP 120 / 89; Pulse 94; Resp 18; Temp 98.2; Pulse Ox 94% on R/A; Weight 66.68 kg; Height wg 5 ft. 3 in. (160.02 cm); Pain 5/10; 00:38 BP 116 / 82; Pulse 90; Resp 18; Temp 98.2; Pulse Ox 94% on R/A; wg 02:42 BP 123 / 74; Pulse 85; Resp 18; Pulse Ox 94% on R/A; sh9 05:46 BP 117 / 63; Pulse 64; Resp 16; Pulse Ox 100% on 3 lpm NC; sh9 08:00 BP 109 / 65; Pulse 68; Resp 15; Temp 97.5; Pulse Ox 100% on 2 lpm NC; jl7 00:26 Body Mass Index 26.04 (66.68 kg, 160.02 cm) wg ED Course: 11/20 23:20 Patient arrived in ED. bp1 11/21 00:33 Triage completed. wg 00:33 Arm band placed on left wrist. wg 02:32 Mary Bradley, BABITA is Primary Nurse. sh9 02:37 Joe Dougherty MD is Attending Physician. pkl 02:41 Patient has correct armband on for positive identification. Bed in low position. Call sh9 light in reach. 02:41 No provider procedures requiring assistance completed. sh9 02:58 CXR XRAY In Process Unspecified. EDMS 03:21 BMP Sent. wg 03:21 Blood Culture Adult (2) Sent. wg 03:21 C-Reactive Protein Sent. wg 03:21 CBC with Diff Sent. wg 03:21 D-Dimer Sent. wg 03:21 Ferritin Sent. wg 03:21 Flu Sent. wg 03:21 LFT's Sent. wg 03:25 Blood Culture Sent. sh9 03:25 C-Reactive Protein Sent. sh9 03:25 Basic Metabolic Panel Sent. sh9 03:25 Ferritin Sent. sh9 03:25 D-Dimer Sent. sh9 03:25 CBC with Automated Diff Sent. sh9 03:25 Liver (Hepatic) Function Sent. sh9 03:25 Lactate Sent. sh9 03:25 Lipase Sent. sh9 03:25 PT-INR Sent. sh9 03:25 Procalcitonin Sent. sh9 03:25 Ptt, Activated Sent. sh9 03:25 Strep Sent. sh9 03:25 Troponin (emerg Dept Use Only) Sent. sh9 04:29 Throat Culture Sent. sh9 04:35 CT Abd/Pelvis - IV Contrast Only In Process Unspecified. EDMS 04:35 CT Chest For PE Angio In Process Unspecified. EDMS 08:03 Attending Physician role handed off by Joe Dougherty MD [facility] 08:03 Evert Alegre MD is Attending Physician. [facility] 09:39 Ronnie Lobo MD is Hospitalizing Provider. elva 11:00 athletic monitor on. Pulse ox on. NIBP on. jl7 11:00 Warm blanket given. jl7 11:14 Report given to BABITA Mix. jl7 Administered Medications: No medications were administered Outcome: 09:40 Decision to Hospitalize by Provider. [facility] 08 08:31 Patient left the ED. eb Signatures: Dispatcher [employer] EDMS Evert Alegre MD MD cha Lam, Pin, MD MD pkl Leal, Jahala RN RN jl7 Jocelyn Jewell Brittany bp1 Hicks, Skylar RN RN sh9 Octavio Sanchez Corrections: (The following items were deleted from the chart) 11/21 08:07 00:33 Home Meds: Meclizine Oral [Inactive]; wg jl7 12:03 03:25 Influenza Screen (A drawn and sent. sh9 EDMS
--- NOTE | 2020-11-21 09:41 | EDPHYS ---
Physician Documentation [facility] Name: Fariba Rowland Age: 70 yrs Sex: Female : 1950 Arrival Date: 11/20/2020 Time: 23:20 Bed 13 Private MD: ED Physician Evert Alegre HPI: 11/21 03:15 This 70 yrs old Female presents to ER via Ambulatory with complaints of pkl Headache, Back Pain, Breathing Difficulty. 03:15 The patient presents with abdominal pain in the upper abdomen. Onset: The pkl symptoms/episode began/occurred today. The symptoms do not radiate. Associated signs and symptoms: Pertinent positives: chest pain. Historical: - Allergies: 00:33 No Known Drug Allergies; wg - Home Meds: 08:05 None [Active]; jl7 - PMHx: 08:05 None; jl7 - PSHx: 08:05 None; jl7 - Immunization history:: Adult Immunizations. - Social history:: Patient/guardian denies using tobacco products, Smoking status: Patient denies any tobacco usage or history of. - Code Status:: Full code. - History obtained from: daughter. - Unable to obtain history due to: Brother will be here soon and will be able to share information on PMH and medications . - Coronavirus screen:: The patient has NOT traveled to [place] in the past 14 days. The patient has NOT had contact with known/suspected case of Coronavirus?. - Ebola Screening: : Patient negative for fever greater than or equal to 101.5 degrees Fahrenheit, and additional compatible Ebola Virus Disease symptoms Patient denies exposure to infectious person Patient denies travel to an Ebola-affected area in the 21 days before illness onset No symptoms or risks identified at this time. ROS: 03:15 Eyes: Negative for injury, pain, redness, and discharge, ENT: Negative for injury, pkl pain, and discharge, Neck: Negative for injury, pain, and swelling, Cardiovascular: Negative for chest pain, palpitations, and edema. 03:15 Respiratory: Positive for cough, with no reported sputum. 03:15 Abdomen/GI: Positive for abdominal pain, diarrhea, of the right upper quadrant and left upper quadrant. 03:15 Back: Negative for acute changes. 03:15 : Negative for urinary symptoms. 03:15 MS/extremity: Negative for acute changes. 03:15 Skin: Negative for rash. 03:15 Neuro: Positive for headache. Exam: 03:15 Head/Face: Normocephalic, atraumatic. Eyes: Pupils equal round and reactive to light, pkl extra-ocular motions intact. Lids and lashes normal. Conjunctiva and sclera are non-icteric and not injected. Cornea within normal limits. Periorbital areas with no swelling, redness, or edema. ENT: Nares patent. No nasal discharge, no septal abnormalities noted. Tympanic membranes are normal and external auditory canals are clear. Oropharynx with no redness, swelling, or masses, exudates, or evidence of obstruction, uvula midline. Mucous membranes moist. Neck: Trachea midline, no thyromegaly or masses palpated, and no cervical lymphadenopathy. Supple, full range of motion without nuchal rigidity, or vertebral point tenderness. No Meningismus. Chest/axilla: Normal chest wall appearance and motion. Nontender with no deformity. No lesions are appreciated. Cardiovascular: Regular rate and rhythm with a normal S1 and S2. No gallops, murmurs, or rubs. Normal PMI, no JVD. No pulse deficits. 03:15 Respiratory: the patient does not display signs of respiratory distress, Respirations: normal, Breath sounds: are clear throughout. 03:15 Abdomen/GI: Bowel sounds: normal, Palpation: soft, moderate abdominal tenderness, in the right upper quadrant and left upper quadrant. 03:15 Abdomen/GI: Exam negative for acute changes. 03:15 Back: Exam negative for acute changes. 03:15 : Exam negative for acute changes. 03:15 Musculoskeletal/extremity: Exam is negative for acute changes. 03:15 Skin: Exam negative for rash. 03:15 Neuro: Orientation: is normal, Mentation: is normal, Cranial nerves: grossly normal, Motor: is normal. 09:38 ECG was reviewed by the Attending Physician. [facility] Vital Signs: 00:26 BP 120 / 89; Pulse 94; Resp 18; Temp 98.2; Pulse Ox 94% on R/A; Weight 66.68 kg; Height wg 5 ft. 3 in. (160.02 cm); Pain 5/10; 00:38 BP 116 / 82; Pulse 90; Resp 18; Temp 98.2; Pulse Ox 94% on R/A; wg 02:42 BP 123 / 74; Pulse 85; Resp 18; Pulse Ox 94% on R/A; sh9 05:46 BP 117 / 63; Pulse 64; Resp 16; Pulse Ox 100% on 3 lpm NC; sh9 08:00 BP 109 / 65; Pulse 68; Resp 15; Temp 97.5; Pulse Ox 100% on 2 lpm NC; jl7 00:26 Body Mass Index 26.04 (66.68 kg, 160.02 cm) wg MDM: 02:37 Patient medically screened. pkl 11/21 02:46 Order name: BMP pkl 11/21 02:46 Order name: Blood Culture Adult (2) pkl 11/21 02:46 Order name: C-Reactive Protein pkl 11/21 02:46 Order name: CBC with Diff pkl 11/21 02:46 Order name: D-Dimer pkl 11/21 02:46 Order name: Ferritin pkl 11/21 02:46 Order name: Flu pkl 11/21 02:46 Order name: LFT's pkl 11/21 02:46 Order name: Lactate; Complete Time: 03:52 pkl 11/21 02:46 Order name: Lipase; Complete Time: 06:02 pkl 11/21 02:46 Order name: PT-INR; Complete Time: 03:44 pkl 11/21 02:46 Order name: Procalcitonin; Complete Time: 06:02 pkl 11/21 02:46 Order name: Ptt, Activated; Complete Time: 03:44 pkl 11/21 02:46 Order name: Strep; Complete Time: 06:02 pkl 11/21 02:46 Order name: Troponin (emerg Dept Use Only); Complete Time: 06:02 pkl 11/21 02:46 Order name: Urine Microscopic Only; Complete Time: 06:02 pkl 11/21 02:47 Order name: Basic Metabolic Panel; Complete Time: 06:02 EDMS 11/21 02:47 Order name: Blood Culture EDMS 11/21 02:47 Order name: C-Reactive Protein; Complete Time: 06:02 EDMS 11/21 02:47 Order name: CBC with Automated Diff; Complete Time: 03:39 EDMS 11/21 02:47 Order name: D-Dimer; Complete Time: 03:44 EDMS 11/21 02:47 Order name: Ferritin; Complete Time: 06:02 EDMS 11/21 02:47 Order name: Liver (Hepatic) Function; Complete Time: 06:02 EDMS 11/21 04:01 Order name: Urine Dipstick-Ancillary; Complete Time: 06:02 EDPR 11/21 04:19 Order name: Throat Culture EDPR 11/21 05:34 Order name: Urine Culture EDPR 11/21 13:07 Order name: COVID-19/FLU A+B EDPR 11/21 02:46 Order name: CXR XRAY pk 11/21 02:46 Order name: EKG; Complete Time: 02:47 pkl 11/21 02:46 Order name: Cardiac monitoring; Complete Time: 03:09 pk 11/21 02:46 Order name: Droplet/Contact Precautions; Complete Time: 03:18 pkl 11/21 02:46 Order name: EKG - Nurse/Tech; Complete Time: 03:18 pkl 11/21 02:46 Order name: IV Start; Complete Time: 03:18 pkl 11/21 02:46 Order name: Labs collected and sent; Complete Time: 03:18 pkl 11/21 02:46 Order name: O2 Per Protocol; Complete Time: 03:09 pkl 11/21 02:46 Order name: O2 Sat Monitoring; Complete Time: 03:09 pk 11/21 02:48 Order name: CT Abd/Pelvis - IV Contrast Only pk 11/21 02:48 Order name: CT Chest For PE Angio pk 11/21 12:31 Order name: CONS Physician Consult [facility] 11/21 16:59 Order name: T4 Free EDPR 11/21 16:59 Order name: Thyroid Stimulating Hormone EDPR 11/22 04:42 Order name: CBC with Automated Diff EDPR 11/22 04:59 Order name: Basic Metabolic Panel EDPR 11/22 04:59 Order name: C-Reactive Protein EDPR 11/22 04:59 Order name: Ferritin EDPR EC:38 Rate is 87 beats/min. Rhythm is regular. QRS [place] is Normal. DC interval is normal. QRS elva interval is normal. QT interval is normal. No Q waves. T waves are Normal in leads V4, V5, V6. Clinical impression: NSR w/ Non-specific ST/T Changes and No evidence of ischemia. Interpreted by me. Reviewed by me. Administered Medications: No medications were administered Disposition Summary: 11/21/20 09:40 Hospitalization Ordered Hospitalization Status: Observation elva Provider: Ronnie Lobo cha Condition: Fair elva Problem: new elva Symptoms: have improved elva Bed/Room Type: Standard elva Location: Telemetry/MedSurg (observation)(11/22/20 06:36) tl1 Room Assignment: 421(11/22/20 06:36) tl1 Diagnosis - Coronavirus infection, unspecified elva - Pneumonia due to SARS-associated coronavirus elva - Other abdominal pain elva - Dyspnea elva - Weakness elva Forms: - Medication Reconciliation Form elva - SBAR form elva Signatures: Dispatcher [employer] EDMS Evert Alegre MD MD cha Lam, Pin, MD MD pkl aKterin Price RN RN aa5 Anitha Soler RN RN tl1 Howie Martinez RN RN jl7 Octavio Sanchez Corrections: (The following items were deleted from the chart) 08:07 00:33 Home Meds: Meclizine Oral [Inactive]; wg jl7 12:02 11:14 CORONAVIRUS+MR.LAB.BRZ ordered. EDMS EDMS 12:03 02:47 Influenza Screen (A ordered. EDMS EDMS 12:03 06:02 Influenza Screen (A reviewed. pkl EDMS 15:15 09:40 Telemetry/MedSurg (observation) elva aa5 15:15 09:40 elva aa5 11/22 06:36 11/21 15:15 [facility] ER HOLD aa5 tl1 11/22 06:36 11/21 15:15 ERHOLD- aa5 tl1
--- NOTE | 2020-11-21 11:24 | RAD REPORT ---
EXAM DESCRIPTION: CT Abdomen and Pelvis With Intravenous Contrast CLINICAL HISTORY: The patient is 70 years old and is Female; ABD PAIN TECHNIQUE: Axial computed tomography images of the abdomen and pelvis with intravenous contrast. S agittal and coronal reformatted images were created and reviewed. This CT exam was performed using one or more of the following dose reduction techniques: automated exposure control, adjustment of t he mA and/or kV according to patient size, and/or use of iterative reconstruction technique. COMPARISON: CT abdomen and pelvis November 06, 2010. FINDINGS: Lung bases: Bibasilar groundglass opacities. See CT chest report. ABDOMEN: Liver: Multiple hepatic cysts, the largest measuring 1.7 cm and the left hepatic lobe. No follow -up imaging recommended. Gallbladder and bile ducts: Unremarkable. No calcified stones. No ductal dilation. Pancreas: No findings to suggest acute pancreatitis. No mass visualized. No ductal dilation. Spleen: Unremarkable. No splenomegaly. Adrenals: Unremarkable. No mass. Kidneys and ureters: Unremarkable. No solid mass. No hydronephrosis. Stomach and bowel: No bowel dilatation or obstruction. No bowel wall thickening. No significant retained stool. PELVIS: Appendix: The visualized appendix is normal. No pericecal inflammation to suggest acute appendic itis. Bladder: Hernandes catheter in the bladder. Reproductive: Unremarkable as visualized. ABDOMEN and PELVIS: Intraperitoneal space: Unremarkable. No free air. No significant fluid collection. Bones/joints: Old L5 compression fracture. Degenerative facet arthropathy in the lower lumbar sp ine. No dislocation. Soft tissues: Unremarkable. Vasculature: Unremarkable. No abdominal aortic aneurysm. Lymph nodes: No pathologically enlarged lymph nodes. IMPRESSION: 1. No acute obstructive or inflammatory process identified. Normal appendix. 2. Bibasilar groundglass opacities. See CT chest report. 3. Hernandes catheter in the bladder. Electronically signed by: Ute Montemayor MD 11/21/2020 4:54 AM CDT Due to temporary technical issues with the PACS/Fluency reporting system, reports are being signed by the in house radiologist without review as a courtesy to ensure prompt reporting. The interpreting r adiologist is fully responsible for the content of the report.
--- NOTE | 2020-11-21 11:36 | RAD REPORT ---
EXAM DESCRIPTION: CT Angiography Chest With Intravenous Contrast CLINICAL HISTORY: The patient is 70 years old and is Female; Cough;Dyspnea TECHNIQUE: Axial computed tomographic angiography images of the chest with intravenous contrast. S agittal and coronal reformatted images were created and reviewed. This CT exam was performed using one or more of the following dose reduction techniques: automated exposure control, adjustment of t he mA and/or kV according to patient size, and/or use of iterative reconstruction technique. MIP re constructed images were created and reviewed. COMPARISON: No relevant prior studies available. FINDINGS: Pulmonary arteries: No PE identified. Aorta: No acute findings. No thoracic aortic aneurysm. Lungs: Multifocal bilateral groundglass opacities, predominantly peripheral. Pleural space: No pleural effusion or pneumothorax. Heart: Unremarkable. No cardiomegaly. No significant pericardial effusion. No evidence of RV dysfunction. Bones/joints: No thoracic compression fracture. Degenerative changes in the AC joints. No dislocation. Soft tissues: Unremarkable. Lymph nodes: Unremarkable. No pathologically enlarged lymph nodes. Upper abdomen: See CT abdomen pelvis report. IMPRESSION: 1. No PE identified. 2. Multifocal bilateral groundglass opacities, predominantly peripheral. Commonly reported imaging features of viral pneumonia are present. Other processes such as influenza pneumonia and organizing p neumonia, as can be seen with drug toxicity and connective tissue disease, can cause a similar imagin g pattern. PneTyp Reference: https://pubs.rsna.org/doi/full/10.1148/ryct.[email or web address] Electronically signed by: Ute Montemayor MD 11/21/2020 4:57 AM CDT Due to temporary technical issues with the PACS/Fluency reporting system, reports are being signed by the in house radiologist without review as a courtesy to ensure prompt reporting. The interpreting r adiologist is fully responsible for the content of the report.
--- NOTE | 2020-11-21 12:56 | P.HP ---
Certification for Inpatient Patient admitted to: Observation With expected LOS: <2 Midnights Patient will require the following post-hospital care: None Practitioner: I am a practitioner with admitting privileges, knowledge of patient current condition, hospital course, and medical plan of care. Services: Services provided to patient in accordance with Admission requirements found in Title 42 Section 412.3 of the Code of Federal Regulations <Megan Lambert - Last Filed: 11/21/20 13:40> Patient History Date of Service: 11/21/20 Reason for admission: covid pnemonia History of Present Illness: This is a 70 y/o F who presents with symptoms of abdominal pain, headache, back aches x 1 day. Denies any nausea, vomiting, diarrhea, fevers. Denies any SOB or difficulty breathing. Denies any dysuria, hematuria, urinary symptoms. Son was worried about recent covid diagnosis and so brought her into ER. Son is vaccinated but patient is not. Pt usually lives with son but has been living alone for a week due to family member testing positive. CXR: Mild bilateral interstitial lung opacities are noted. The heart is normal in size. No displaced fractures. IMPRESSION: Mild interstitial lung opacity bilaterally likely related to viral infection. abd CT: 1. No acute obstructive or inflammatory process identified. Normal appendix. 2. Bibasilar groundglass opacities. See CT chest report. 3. Hernandes catheter in the bladder. CTA: 1. No PE identified. 2. Multifocal bilateral groundglass opacities, predominantly peripheral. Commonly reported imaging features of viral pneumonia are present. Other processes such as influenza pneumonia and organizing pneumonia, as can be seen with drug toxicity and connective tissue disease, can cause a similar imaging pattern. - Past Medical/Surgical History Diabetic: No Past Medical History: Patient denies medical history Past Surgical History: Patient denies surgical history Psychosocial/ Personal History: usually lives with son and daughter. living alone temporarily - Social History Smoking Status: Never smoker Alcohol use: No CD- Drugs: No Caffeine use: No <Megan Lambert - Last Filed: 11/21/20 13:40> Date of Service: 11/21/20 <Ronnie Lobo - Last Filed: 11/22/20 10:30> Allergies No Known Drug Allergies Allergy (Verified 09/15/16 02:59) Unknown No Known Allerg Allergy (Uncoded 09/15/16 09:27) Unknown Home Medications: Meclizine HCl [Antivert*] 25 mg PO Q6H PRN #120 tab 03/21/13 Aspirin Chewable [Aspirin Chewable*] 162 mg PO DAILY #30 tab.chew 09/16/16 Review of Systems 10-point ROS is otherwise unremarkable <Megan Lambert - Last Filed: 11/21/20 13:40> Physical Examination - Physical Exam General: Alert, In no apparent distress, Oriented x3, Cooperative HEENT: Atraumatic, Normocephalic Neck: Supple, 2+ carotid pulse no bruit, No LAD Respiratory: Clear to auscultation bilaterally, Normal air movement, Other (95- 98% on 2L) Cardiovascular: No edema, Regular rate/rhythm Capillary refill: <2 Seconds Gastrointestinal: Normal bowel sounds, Soft and benign, Non-distended, Tenderness (epigastrium) Musculoskeletal: No swelling, No tenderness Integumentary: No rashes, No breakdown Neurological: Normal speech, Normal tone, Normal affect Lymphatics: No axilla or inguinal lymphadenopathy Urinary: Hernandes catheter - Studies Laboratory Data (last 24 hrs) 11/21/20 03:00: PT 11.5, INR 1.00, APTT 23.8 L 11/21/20 03:00: WBC 4.80, Hgb 13.1, Hct 38.1, Plt Count 304 11/21/20 03:00: Sodium 138, Potassium 3.5, BUN 17, Creatinine 0.57, Glucose 87, Total Bilirubin 0.7, AST 30, ALT 29, Alkaline Phosphatase 49, Lipase 318 Microbiology Data (last 24 hrs): 11/21/20 03:00 Throat Group A Streptococcus Rapid Screen - Final <Megan Lambert - Last Filed: 11/21/20 13:40> Assessment and Plan - Problems (Diagnosis) (1) Pneumonia due to coronavirus disease 2019 Current Visit: Yes Status: Acute - Plan IV steroids vitamin supplementation pulmonology consulted trend inflammatory markers wean oxygen as tolerated DVT prophylaxis-lovenox will consult respiratory and social media designer to d/c pt with home oxygen anticipate improvement over next 24h, possible discharge tomorrow Discharge Plan: Home Plan to discharge in: 24 Hours - Advance Directives Does patient have a Living Will: Yes Does patient have a Durable POA for Healthcare: Yes - Code Status/Comfort Care Code Status Assessed: Yes (full) Time Spent Managing Pts Care (In Minutes): 70 <Megan Lambert - Last Filed: 11/21/20 13:40> Date of Service: 11/21/20 Subjective: Patient doing well with no new complaints Physical Examination: Vitals: Afebrile vital signs are stable Physical exam: Cardiovascular: Within normal limits. Lungs: Diminished breath sounds but otherwise clear Abdomen: Within normal limits Neuro: Awake, alert, oriented to person place and time Assessment: 1. COVID-19 pneumonia Plan: 1. Continue with IV steroids 2. Monitor inflammatory markers 3. Repeat chest x-ray is symptoms are progressively worsening 4. O2 per protocol 5. Pulmonary consultation 6. Continue with albuterol inhaler therapy; also supportive care 7. Monitor LFTs 8. GI and DVT prophylaxis <Ronnie Lobo - Last Filed: 11/22/20 10:30>
[2020-11-21 13:06] LABS: SARS-COV-2 RT PCR POSITIVE (NEGATIVE)
--- NOTE | 2020-11-21 13:32 | P.CNS ---
Date of Consult: 11/21/20 Reason for Consult: Coronavirus pneumonia Chief Complaint: covid pnemonia History of Present Illness: Age 70 admitted with abdominal pain headache body aches him to the emergency room was diagnosed with coronavirus pneumonia Allergies No Known Drug Allergies Allergy (Verified 09/15/16 02:59) Unknown No Known Allerg Allergy (Uncoded 09/15/16 09:27) Unknown Home Medications: Meclizine HCl [Antivert*] 25 mg PO Q6H PRN #120 tab 03/21/13 Aspirin Chewable [Aspirin Chewable*] 162 mg PO DAILY #30 tab.chew 09/16/16 - Past Medical/Surgical History Diabetic: No Psychosocial/ Personal History: usually lives with son and daughter. living alone temporarily - Social History Smoking Status: Never smoker Alcohol use: No CD- Drugs: No Caffeine use: No Review of Systems General: Weakness Respiratory: Shortness of Breath Physical Examination General: Alert, Oriented x3, Cooperative Laboratory Data (last 24 hrs) 11/21/20 03:00: PT 11.5, INR 1.00, APTT 23.8 L 11/21/20 03:00: WBC 4.80, Hgb 13.1, Hct 38.1, Plt Count 304 11/21/20 03:00: Sodium 138, Potassium 3.5, BUN 17, Creatinine 0.57, Glucose 87, Total Bilirubin 0.7, AST 30, ALT 29, Alkaline Phosphatase 49, Lipase 318 - Problems (1) Pneumonia due to coronavirus disease 2018 Current Visit: Yes Status: Acute Plan: Patient is 70 years of age admitted with coronavirus pneumonia she has mild bilateral groundglass changes labs chemistries are reviewed patient saturation is 94% on room air plan to observe discharge tomorrow/trial of steroids
[2020-11-21] MEDS: ASPIRIN EC 81 MG TAB PO SCH (13:33)
[2020-11-21] MEDS ORDERED: ENOXAPARIN 40 MG/0.4 ML SQ SCH (13:33)
[2020-11-21] MEDS ORDERED: ONDANSETRON 4 MG/2 ML VIAL IV PRN (15:49)
[2020-11-21] MEDS ORDERED: ACETAMINOPHEN 500 MG TAB PO PRN (15:49)
[2020-11-21 16:10] VITALS: BMI 26.0
[2020-11-21 16:59] LABS: Thyroid Stimulating Hormone 1.43 uIU/mL (0.360-3.740)
[2020-11-21] MEDS ORDERED: PNEUMOCOCCAL VACCINE 0.5 ML IMVAC ONE ×2 (17:00→18:19)
[2020-11-21] MEDS: ASCORBIC ACID 500 MG TABLET PO SCH ×2 (17:00→21:00)
[2020-11-21] MEDS ORDERED: ASPIRIN EC 81 MG TAB PO ONE (18:18)
[2020-11-21] MEDS ORDERED: ASCORBIC ACID 500 MG TABLET ONE ×2 (18:18→21:18)
[2020-11-21] MEDS: METHYLPREDNISOLONE 125 MG INJ IV SCH (21:00)
[2020-11-21] MEDS: THIAMINE HCL 100 MG TABLET PO SCH (21:00)
[2020-11-21] MEDS: FAMOTIDINE 20 MG TAB PO SCH (21:00)
[2020-11-21] MEDS ORDERED: MELATONIN 5 MG TABLET PO SCH (21:00)
[2020-11-21] MEDS ORDERED: METHYLPREDNISOLONE 40 MG INJ ONE (21:18)
[2020-11-21] MEDS ORDERED: FAMOTIDINE 20 MG TAB ONE (21:18)
[2020-11-21] MEDS ORDERED: MELATONIN 5 MG TABLET PO ONE (21:18)
[2020-11-21] MEDS ORDERED: THIAMINE HCL 100 MG TABLET ONE (21:51)
[2020-11-22 04:28] LABS: Absolute Lymphocytes (CBC) 0.7 K/uL (0.7-4.9); Basophils % 0.5 % (0-1.3); Hematocrit 36.2 % (36.0-45.0); Lymphocytes % 13.7 % (15.3-44.8); MPV 7.7 fL (7.6-11.3); RBC Red Blood Cell Count 4.04 M/uL (3.86-4.86)
[2020-11-22 04:58] LABS: BUN Blood Urea Nitrogen 23 mg/dL (7-18); Bicarbonate 28 mmol/L (21-32); Ferritin 608.7 ng/mL (8-388); Glucose Level 160 mg/dL (74-106); Potassium 4.1 mmol/L (3.5-5.1); Sodium Level 138 mmol/L (136-145)
[2020-11-22 05:03] VITALS: O2SAT 99
[2020-11-22] MEDS ORDERED: VITAMIN D 1000 UNIT TAB PO SCH (09:00)
[2020-11-22] MEDS ORDERED: ZINC SULFATE 220 MG CAP PO SCH (09:00)
[2020-11-22] MEDS ORDERED: ENOXAPARIN 40 MG/0.4 ML SQ SCH (09:00)
--- NOTE | 2020-11-22 10:34 | P.DS ---
Discharge Date: 11/22/20 Disposition: ROUTINE DISCHARGE Discharge Condition: GOOD Reason for Admission: covid pnemonia Brief History of Present Illness: This is a 70 y/o F who presents with symptoms of abdominal pain, headache, back aches x 1 day. Denies any nausea, vomiting, diarrhea, fevers. Denies any SOB or difficulty breathing. Denies any dysuria, hematuria, urinary symptoms. Son was worried about recent covid diagnosis and so brought her into ER. Son is vaccinated but patient is not. Pt usually lives with son but has been living alone for a week due to family member testing positive. Hospital Course: She is clinically doing well with no new complaints. Patient is continuing to improve. Her oxygen saturations are stable on 2 L. she is ambulating in the room appropriately. Family should be able to manage her at home. Patient at this time is stable for discharge. Vital Signs/Physical Exam: Temp Pulse Resp BP Pulse Ox 97.0 F 65 18 106/58 L 97 11/22/20 08:00 11/22/20 08:00 11/22/20 08:00 11/22/20 08:00 11/22/20 08:00 General: Alert, In no apparent distress, Oriented x3 Laboratory Data at Discharge: WBC 5.00 K/uL (4.3-10.9) 11/22/20 04:06 Hgb 12.5 g/dL (12.0-15.0) 11/22/20 04:06 Hct 36.2 % (36.0-45.0) 11/22/20 04:06 Plt Count 350 K/uL (152-406) 11/22/20 04:06 PT 11.5 SECONDS (9.5-12.5) 11/21/20 03:00 INR 1.00 11/21/20 03:00 APTT 23.8 SECONDS (24.3-36.9) L 11/21/20 03:00 Sodium 138 mmol/L (136-145) 11/22/20 04:06 Potassium 4.1 mmol/L (3.5-5.1) 11/22/20 04:06 BUN 23 mg/dL (7-18) H 11/22/20 04:06 Creatinine 0.55 mg/dL (0.55-1.3) 11/22/20 04:06 Glucose 160 mg/dL (74-106) H 11/22/20 04:06 Total Bilirubin 0.7 mg/dL (0.2-1.0) 11/21/20 03:00 AST 30 U/L (15-37) 11/21/20 03:00 ALT 29 U/L (12-78) 11/21/20 03:00 Alkaline Phosphatase 49 U/L (45-117) 11/21/20 03:00 Lipase 318 U/L (73-393) 11/21/20 03:00 Home Medications: Meclizine HCl [Antivert*] 25 mg PO Q6H PRN #120 tab 03/21/13 Aspirin Chewable [Aspirin Chewable*] 162 mg PO DAILY #30 tab.chew 09/16/16 Albuterol Inhaler [Ventolin Inhaler*] 2 puff IH Q6H PRN #1 hfa.aer.ad 11/22/20 Ascorbic Acid [Vitamin C*] 500 mg PO QID #120 tablet 11/22/20 Benzonatate [Tessalon Perle] 200 mg PO TID #60 cap 11/22/20 Cholecalciferol (Vitamin D3) [Vitamin D 1000 Iu Tab*] 4,000 unit PO DAILY #30 tab 11/22/20 Famotidine [Pepcid*] 20 mg PO BID #60 tab 11/22/20 Melatonin 5 mg PO BEDTIME #30 tablet 11/22/20 Thiamine HCl [Vitamin B-1*] 100 mg PO BID #60 tablet 11/22/20 Zinc Sulfate [Zinc Sulfate*] 220 mg PO DAILY #30 cap 11/22/20 predniSONE [Prednisone*] 20 mg PO BID #20 tab 11/22/20 New Medications: Melatonin 5 mg PO BEDTIME #30 tablet Famotidine [Pepcid*] 20 mg PO BID #60 tab predniSONE [Prednisone*] 20 mg PO BID #20 tab Benzonatate [Tessalon Perle] 200 mg PO TID #60 cap Albuterol Inhaler [Ventolin Inhaler*] 2 puff IH Q6H PRN #1 hfa.aer.ad PRN Reason: Shortness Of Breath Thiamine HCl [Vitamin B-1*] 100 mg PO BID #60 tablet Ascorbic Acid [Vitamin C*] 500 mg PO QID #120 tablet Cholecalciferol (Vitamin D3) [Vitamin D 1000 Iu Tab*] 4,000 unit PO DAILY #30 tab Zinc Sulfate [Zinc Sulfate*] 220 mg PO DAILY #30 cap Physician Discharge Instructions: OK TO DC IV AND DC HOME once home oxygen is arranged FOLLOW-UP WITH PRIMARY CARE PROVIDER IN 1-2 WEEKS FOLLOW-UP WITH Pulmonary IN 1-2 WEEKS RETURN TO THE ER if symptoms worsen CALL or TEXT DR. SHARMA AT [phone] IF ANY QUESTIONS REGARDING HOSPITAL STAY. PLEASE CALL THE FLOOR AT [phone] IF ANY MEDICATION OR NURSING QUESTIONS. 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
[2020-11-22] MEDS: METHYLPREDNISOLONE 125 MG INJ IV SCH (10:35)
[2020-11-22] MEDS: ASCORBIC ACID 500 MG TABLET PO SCH ×2 (10:36→14:27)
[2020-11-22] MEDS: FAMOTIDINE 20 MG TAB PO SCH (10:36)
[2020-11-22] MEDS: THIAMINE HCL 100 MG TABLET PO SCH (10:36)
[2020-11-22] MEDS: ASPIRIN EC 81 MG TAB PO SCH (10:37)
[2020-11-22 17:05] VITALS: BP 107/67; TEMP 98.2
== END 2020-11-22 18:10 | disposition home or self-care (01) ==
LOC: ER 23:16 → ERHOLD 11-21 12:27 → 4TH 11-22 07:39
PROVIDERS: ADMIT Hospitalist; ATTEND Hospitalist
DX: U07.1 COVID-19 (principal); J12.82 Pneumonia due to coronavirus disease 2019; R10.9 Unspecified abdominal pain
CPT/HCPCS: 93005; 87040 ×2; 87070; 87088; 85025 ×2; 87086; 80048 ×2; 36415 ×2; 85610; 85379; 80076; 87081; 83605; 85730; 84443; 84484; 84439; 82728 ×2; 83690; 84145; 0240U; 86140 ×2; 71275; 74177; 71045; 90471; 90732; 99284; Q9967; J1650 ×2; J2930 ×2; J2920; 81003; 81015; G0378

== ENCOUNTER 2020-11-23 04:09 | Observation (INO) | payer OTHER ==
[~2020-11-23 04:09] MED LIST: predniSONE 20 MG TAB PO SCH
[2020-11-23] MEDS ORDERED: NA CHLORIDE 0.9% 1,000 ML ONE ×3 (05:15→19:17)
[2020-11-23 05:17] LABS: Absolute Lymphocytes (CBC) 0.8 K/uL (0.7-4.9); Basophils % 0.7 % (0-1.3); Hematocrit 35.7 % (36.0-45.0); Lymphocytes % 17.9 % (15.3-44.8); MPV 7.7 fL (7.6-11.3); RBC Red Blood Cell Count 3.97 M/uL (3.86-4.86)
[2020-11-23 05:41] LABS: BUN Blood Urea Nitrogen 22 mg/dL (7-18); Bicarbonate 30 mmol/L (21-32); Ferritin 457.5 ng/mL (8-388); Glucose Level 101 mg/dL (74-106); Potassium 3.4 mmol/L (3.5-5.1); Sodium Level 141 mmol/L (136-145)
--- NOTE | 2020-11-23 05:45 | RAD REPORT ---
EXAM DESCRIPTION: RAD - Chest Single View - 11/23/2020 5:07 am CLINICAL HISTORY: covid +;Cough Chest pain. COMPARISON: Chest Single View dated 11/21/2020; Chest Single View dated 09/14/2016; CHEST SINGLE VIEW dated 03/19/2013 FINDINGS: Portable technique limits examination quality. Mild bilateral interstitial lung opacities are again seen, slightly progressive since the 11/11/2020 study. This is most likely related to underlying viral infection. The heart is normal in size. No dis placed fractures. IMPRESSION: Slight worsening in lung aeration seen since recent comparative chest radiograph.
--- NOTE | 2020-11-23 06:16 | EDPHYS ---
Physician Documentation [facility] Name: Fariba Rowland Age: 70 yrs Sex: Female : 1950 Arrival Date: 11/23/2020 Time: 04:13 Bed 24 Private MD: ED Physician Hollis Hartley HPI: 11/23 04:55 This 70 yrs old Female presents to ER via Wheelchair with complaints of rn General Weakness, COVID +. 04:55 Patient reports legs feel wobbly and generalized weakness. Patient admitted yesterday rn for less than 24 hours quick stay for Covid pneumonia. Patient sent home on home oxygen. Returns for increased weakness. Denies fall or syncope. Denies chest pain. Does not feel like breathing is any worse than it was.. Onset: The symptoms/episode began/occurred at an unknown time. Severity of symptoms: At their worst the symptoms were moderate in the emergency department the symptoms are unchanged. The patient has not experienced similar symptoms in the past. The patient has been recently been admitted at [facility]. Patient denies any vomiting or diarrhea. Historical: - Allergies: 04:22 No Known Allergies; em - PMHx: 04:22 None; em - PSHx: 04:22 None; em - Immunization history:: Client reports having NOT received the Covid vaccine. - Social history:: Smoking status: Patient denies any tobacco usage or history of. - Family history:: not pertinent. - Hospitalizations: : The patient was recently seen at [facility]. ROS: 04:55 Constitutional: Negative for fever, chills, and weight loss, Eyes: Negative for injury, rn pain, redness, and discharge, Neck: Negative for injury, pain, and swelling, Cardiovascular: Negative for chest pain, palpitations, and edema, Respiratory: Positive for cough and mild shortness of breath Abdomen/GI: Negative for abdominal pain, nausea, vomiting, diarrhea, and constipation, Back: Negative for injury and pain, MS/Extremity: Negative for injury and deformity, Skin: Negative for injury, rash, and discoloration, Neuro: Negative for headache, numbness, tingling, and seizure. Exam: 04:55 Constitutional: Thin female, mild tachypnea, no acute distress Head/Face: rn Normocephalic, atraumatic. Eyes: Periorbital areas with no swelling, redness, or edema. ENT: No stridor, dry mucous membranes Cardiovascular: Regular rate and rhythm. No pulse deficits. Respiratory: Mild tachypnea, no retractions Abdomen/GI: Soft, non-tender Skin: Warm, dry, no cyanosis MS/ Extremity: Pulses equal, no cyanosis. Neurovascular intact. Full, normal range of motion. Equal circumference. Neuro: Awake and alert, GCS 15, strength 4 out of 5 throughout Vital Signs: 04:18 BP 116 / 70; Pulse 96; Resp 18; Temp 97.7; Pulse Ox 94% on 3 lpm NC; Weight 64.86 kg; em Height 5 ft. 3 in. (160.02 cm); 05:08 BP 119 / 69; Pulse 67; Resp 18; Pulse Ox 100% on 2 lpm NC; lh3 07:10 BP 123 / 67; Pulse 70; Resp 18; Pulse Ox 100% on 2 lpm NC; Pain 0/10; ch5 04:18 Body Mass Index 25.33 (64.86 kg, 160.02 cm) em MDM: 04:23 Patient medically screened. rn 06:10 Differential Diagnosis. rn 06:12 Data reviewed: vital signs, nurses notes, lab test result(s), EKG, radiologic studies, rn plain films, and as a result, I will admit patient. Data interpreted: teletypesetter monitor: rate is 67 beats/min, rhythm is normal sinus rhythm, regular, with no ectopy, Interpretation: normal rate, normal rhythm, Pulse oximetry: on room air is 100 %. Interpretation: normal. Test interpretation: by ED physician or midlevel provider: plain radiologic studies, Bilateral interstitial infiltrates consistent with Covid pneumonia. 06:14 Counseling: I had a detailed discussion with the patient and/or guardian regarding: the rn historical points, exam findings, and any diagnostic results supporting the discharge/admit diagnosis, lab results, radiology results, the need for further work-up and treatment in the hospital. Response to treatment: There is no appreciated change of the patient's symptoms at this time, and as a result, I will admit patient. Admission orders: after a detailed discussion of the patient's condition and case, the admit orders are written by me. ED course: Patient with worsening weakness and slight worsening of chest x-ray today. Will readmit patient given cannot walk on her own power, and lives by herself with no one to help her with worsening Covid pneumonia.. 11/23 04:32 Order name: CBC with Diff; Complete Time: 05:44 rn 11/23 04:32 Order name: Basic Metabolic Panel; Complete Time: 05:44 rn 11/23 04:32 Order name: Ferritin; Complete Time: 05:44 rn 11/23 04:32 Order name: CRP; Complete Time: 05:44 rn 11/23 08:42 Order name: Comprehensive Metabolic Panel EDMS 11/23 08:42 Order name: Comprehensive Metabolic Panel EDMS 11/23 08:42 Order name: C-Reactive Protein EDMS 11/23 08:42 Order name: C-Reactive Protein EDMS 11/23 08:42 Order name: CBC with Automated Diff EDMS 11/23 08:42 Order name: CBC with Automated Diff EDMS 11/23 08:42 Order name: D-Dimer EDMS 11/23 08:42 Order name: D-Dimer EDMS 11/23 08:42 Order name: Ferritin EDMS 11/23 04:32 Order name: XRAY Chest (1 view); Complete Time: 06:06 rn 11/23 04:32 Order name: IV Start; Complete Time: 05:08 rn 11/23 04:32 Order name: EKG; Complete Time: 04:32 rn 11/23 04:32 Order name: EKG - Nurse/Tech; Complete Time: 05:08 rn 11/23 04:32 Order name: Cardiac monitoring; Complete Time: 05:08 rn 11/23 04:32 Order name: Oxygen Per Protocol; Complete Time: 05:08 rn 11/23 04:32 Order name: O2 Sat Monitoring; Complete Time: 05:08 rn 11/23 08:42 Order name: Physical Therapy Consult EDMS 11/23 08:42 Order name: Heart Healthy EDMS 11/23 08:42 Order name: Ferritin EDMS 11/23 10:28 Order name: SARS-COV-2 RT PCR EDMS Administered Medications: 04:54 Drug: NS 0.9% 1000 ml Route: IV; Rate: 1000 ml; Site: left antecubital; em 07:11 Follow up: IV Status: Completed infusion; IV Intake: 1000ml ch5 Disposition Summary: 11/23/20 06:15 Hospitalization Ordered Hospitalization Status: Observation rn Provider: Dominic Lyn rn Condition: Stable rn Problem: new rn Symptoms: have improved rn Bed/Room Type: Standard rn Location: [facility] ER HOLD(11/24/20 00:24) mw Room Assignment: ERHOLD-(11/24/20 00:24) mw Diagnosis - Pneumonia due to SARS-associated coronavirus rn - Dehydration rn - Muscle weakness (generalized) rn Forms: - Medication Reconciliation Form rn - SBAR form rn Signatures: Dispatcher [employer] EDMS Melyssa Toledo RN RN mw Aravind Noel, RN RN em Hollis Hartley MD MD rn Smirch, Shelby, RN RN Jocelyn Jewell Christopher RN ch5 Corrections: (The following items were deleted from the chart) 06:36 06:15 Telemetry/MedSurg (Inpatient) rn mw 06:36 06:15 rn mw 07:43 06:22 CORONAVIRUS+MR.LAB.BRZ ordered. EDIA EDMS 07:54 06:36 [facility] ER HOLD mw ss 07:54 06:36 ERHOLD- mw ss 09:05 07:54 Telemetry/MedSurg (Inpatient) ss eb 09:05 07:54 ss eb 11/24 00:22 08 09:05 [facility] ER HOLD eb mw 11/24 00:22 08 09:05 ERHOLD- eb mw 11/24 00:24 00:22 Telemetry/MedSurg (Inpatient) mw mw 00:24 00:22 420 mw mw
--- NOTE | 2020-11-23 06:16 | ER ---
Nurse's Notes [facility] Name: Fariba Rowland Age: 70 yrs Sex: Female : 1950 Arrival Date: 11/23/2020 Time: 04:13 Bed 24 Private MD: Diagnosis: Pneumonia due to SARS-associated coronavirus;Dehydration;Muscle weakness (generalized) Presentation: 11/23 04:18 Chief complaint: Parent and/or Guardian states: believes she is going to fall, reports em legs aren't working, reports generalized weakness, was recently diagnosed with covid and discharged yesterday afternoon, also reports abdomen pain, denies N/V. Coronavirus screen: Vaccine status: Patient reports being unvaccinated. fatigue. Ebola Screen: Patient negative for fever greater than or equal to 101.5 degrees Fahrenheit, and additional compatible Ebola Virus Disease symptoms Patient denies exposure to infectious person. Patient denies travel to an Ebola-affected area in the 21 days before illness onset. No symptoms or risks identified at this time. Initial Sepsis Screen: Does the patient meet any 2 criteria? HR > 90 bpm. No. Patient's initial sepsis screen is negative. Does the patient have a suspected source of infection? Yes: Productive cough/pneumonia. Risk Assessment: Do you want to hurt yourself or someone else? Patient reports no desire to harm self or others. Onset of symptoms was November 23, 2020. 04:18 Method Of Arrival: Wheelchair em 04:18 Acuity: TRAMAINE 3 em Triage Assessment: 05:08 General: Appears in no apparent distress. Behavior is calm, cooperative, appropriate lh3 for age. Pain: Denies pain. Historical: - Allergies: 04:22 No Known Allergies; em - PMHx: 04:22 None; em - PSHx: 04:22 None; em - Immunization history:: Client reports having NOT received the Covid vaccine. - Social history:: Smoking status: Patient denies any tobacco usage or history of. - Family history:: not pertinent. - Hospitalizations: : The patient was recently seen at [facility]. Screenin:09 Abuse screen: Denies threats or abuse. Nutritional screening: No deficits noted. lh3 Tuberculosis screening: No symptoms or risk factors identified. Fall Risk IV access (20 points). Assessment: 05:09 Reassessment:. General: Appears in no apparent distress. Behavior is calm, cooperative, lh3 appropriate for age. Respiratory: Airway is patent. 07:06 Reassessment: Report Received from Ruthie JC. Pt resting quietly in bed with eyes ch5 closed. No new orders. Not placed in [facility]. Vital Signs: 04:18 BP 116 / 70; Pulse 96; Resp 18; Temp 97.7; Pulse Ox 94% on 3 lpm NC; Weight 64.86 kg; em Height 5 ft. 3 in. (160.02 cm); 05:08 BP 119 / 69; Pulse 67; Resp 18; Pulse Ox 100% on 2 lpm NC; lh3 07:10 BP 123 / 67; Pulse 70; Resp 18; Pulse Ox 100% on 2 lpm NC; Pain 0/10; ch5 04:18 Body Mass Index 25.33 (64.86 kg, 160.02 cm) em ED Course: 04:13 Patient arrived in ED. wm 04:22 Triage completed. em 04:22 Arm band placed on. em 04:23 Hollis Hartley MD is Attending Physician. rn 04:26 Ruthie Walton, BABITA is Primary Nurse. lh3 05:07 XRAY Chest (1 view) In Process Unspecified. EDMS 05:08 Ferritin Sent. lh3 05:08 CRP Sent. lh3 05:08 CBC with Diff Sent. lh3 05:08 Basic Metabolic Panel Sent. lh3 05:09 Patient has correct armband on for positive identification. Bed in low position. Call lh3 light in reach. Side rails up X 1. 05:09 No provider procedures requiring assistance completed. Inserted saline lock: 20 gauge lh3 in left antecubital area, using aseptic technique. 06:15 Dominic Lyn MD is Hospitalizing Provider. rn 07:02 Primary Nurse role handed off by Ruthie Walton, BABITA ch5 07:02 Pa Figueroa, RN is Primary Nurse. ch5 09:11 Inserted Patient admitted, IV remains in place. ch5 18:10 Diet: Patient given a heart healthy meal tray. ch5 Administered Medications: 04:54 Drug: NS 0.9% 1000 ml Route: IV; Rate: 1000 ml; Site: left antecubital; em 07:11 Follow up: IV Status: Completed infusion; IV Intake: 1000ml ch5 Intake: 07:11 IV: 1000ml; Total: 1000ml. ch5 Outcome: 06:15 Decision to Hospitalize by Provider. rn 09:11 Admitted to ER Hold. Please see [facility] for further documentation. ch5 09:11 Condition: stable 09:11 Instructed on the need for admit. 11/24 13:12 Patient left the ED. ld1 Signatures: Dispatcher [employer] Aravind Ferguson RN Hollis Miller MD MD rn Dibbern, Lauren, RN RN ld1 Charlee Garcia Latisha, RN RN 3 Pa Figueroa RN RN 5 Corrections: (The following items were deleted from the chart) 11/23 07:09 07:06 Reassessment: Report Received from Ruthie JC. Pt resting quietly in bed with ch5 eyes closed. No new orders. Not placed in [facility]. ch5
[2020-11-23] MEDS ORDERED: MORPHINE 2 MG/ML SYR IV PRN (08:38)
[2020-11-23] MEDS ORDERED: ACETAMINOPHEN 500 MG TAB PO PRN (08:38)
[2020-11-23] MEDS ORDERED: ONDANSETRON 4 MG/2 ML VIAL IV PRN (08:38)
[2020-11-23] MEDS ORDERED: METHYLPREDNISOLONE 40 MG INJ IV SCH (09:00)
[2020-11-23 10:13] VITALS: BMI 25.2
[2020-11-23] MEDS: APIXABAN 5 MG TABLET PO SCH ×2 (10:18→20:40)
[2020-11-23] MEDS: NA CHLORIDE 0.9% 1,000 ML IV SCH ×2 (10:30→20:45)
[2020-11-23] MEDS ORDERED: METHYLPREDNISOLONE 125 MG INJ ONE (10:43)
[2020-11-23] MEDS ORDERED: ACETAMINOPHEN 500 MG TAB ONE (10:44)
[2020-11-23] MEDS ORDERED: APIXABAN 5 MG TABLET ONE ×2 (10:44→20:31)
--- NOTE | 2020-11-23 12:13 | P.HP ---
Certification for Inpatient Patient admitted to: Inpatient With expected LOS: >2 Midnights Patient will require the following post-hospital care: Home Health Services Practitioner: I am a practitioner with admitting privileges, knowledge of patient current condition, hospital course, and medical plan of care. Services: Services provided to patient in accordance with Admission requirements found in Title 42 Section 412.3 of the Code of Federal Regulations Patient History Date of Service: 11/23/20 Primary Care Provider: know Reason for admission: steroid myopathy, covid 19 History of Present Illness: Patient was recently admitted to the hospital for covid 19. She was discharged home yesterday on prednisone and medications. Unfortunately she was very weak and not able to walk well. She had multiple complaints of nausea, vomiting and mostly weakness. As she was home alone due to quarantining her son brought her to the ER. The patient is breathing well. Allergies No Known Drug Allergies Allergy (Verified 09/15/16 02:59) Unknown No Known Allerg Allergy (Uncoded 09/15/16 09:27) Unknown Home Medications: Meclizine HCl [Antivert*] 25 mg PO Q6H PRN #120 tab 03/21/13 Aspirin Chewable [Aspirin Chewable*] 162 mg PO DAILY #30 tab.chew 09/16/16 Albuterol Inhaler [Ventolin Inhaler*] 2 puff IH Q6H PRN #1 hfa.aer.ad 11/22/20 Ascorbic Acid [Vitamin C*] 500 mg PO QID #120 tablet 11/22/20 Benzonatate [Tessalon Perle] 200 mg PO TID #60 cap 11/22/20 Cholecalciferol (Vitamin D3) [Vitamin D 1000 Iu Tab*] 4,000 unit PO DAILY #30 tab 11/22/20 Famotidine [Pepcid*] 20 mg PO BID #60 tab 11/22/20 Melatonin 5 mg PO BEDTIME #30 tablet 11/22/20 Thiamine HCl [Vitamin B-1*] 100 mg PO BID #60 tablet 11/22/20 Zinc Sulfate [Zinc Sulfate*] 220 mg PO DAILY #30 cap 11/22/20 predniSONE [Prednisone*] 20 mg PO BID #20 tab 11/22/20 - Past Medical/Surgical History Diabetic: No Psychosocial/ Personal History: usually lives with son and daughter. living alone temporarily - Social History Smoking Status: Never smoker Alcohol use: No CD- Drugs: No Caffeine use: No Review of Systems 10-point ROS is otherwise unremarkable General: Weakness, Malaise Physical Examination - Vital Signs Temperature: 98.5 F Blood Pressure: 123/66 Pulse: 64 Pulse Ox (%): 100 - Physical Exam General: Alert, In no apparent distress HEENT: Atraumatic, PERRLA, Mucous membr. moist/pink, EOMI, Sclerae nonicteric Neck: Supple, 2+ carotid pulse no bruit, No LAD, Without JVD or thyroid abnormality Respiratory: Clear to auscultation bilaterally, Normal air movement Cardiovascular: Regular rate/rhythm, Normal S1 S2 Gastrointestinal: Normal bowel sounds, No tenderness Musculoskeletal: Other Integumentary: No rashes Neurological: Normal speech, Normal tone, Normal affect, Abnormal strength (strength is 4/5 ) Lymphatics: No axilla or inguinal lymphadenopathy - Studies Laboratory Data (last 24 hrs) 11/23/20 04:52: Sodium 141, Potassium 3.4 L, BUN 22 H, Creatinine 0.54 L, Glucose 101 11/23/20 04:52: WBC 4.60, Hgb 12.1, Hct 35.7 L, Plt Count 375 Assessment and Plan - Problems (Diagnosis) (1) Steroid myopathy Current Visit: Yes Status: Acute Plan: will start her on PT and start a ensure with each meal (2) COVID-19 Current Visit: Yes Status: Acute Plan: will continue the medications she was discharged on Discharge Plan: Home Plan to discharge in: 24 Hours - Advance Directives Does patient have a Living Will: No Does patient have a Durable POA for Healthcare: No - Code Status/Comfort Care Code Status Assessed: No Critical Care: No Time Spent Managing Pts Care (In Minutes): 45
[2020-11-23] MEDS ORDERED: MECLIZINE HCL 12.5 MG TAB PO PRN (12:19)
[2020-11-23] MEDS: ENSURE HIGH PROTEIN 237 ML CAN PO SCH (17:00)
[2020-11-24 04:33] LABS: Absolute Lymphocytes (CBC) 1.1 K/uL (0.7-4.9); Basophils % 0.4 % (0-1.3); Hematocrit 31.3 % (36.0-45.0); MPV 7.7 fL (7.6-11.3); RBC Red Blood Cell Count 3.47 M/uL (3.86-4.86)
[2020-11-24 05:05] LABS: ALT/SGPT 22 U/L (12-78); AST/SGOT 16 U/L (15-37); Albumin 2.5 g/dL (3.4-5.0); Alkaline Phosphatase 42 U/L (45-117); BUN Blood Urea Nitrogen 15 mg/dL (7-18); Bicarbonate 28 mmol/L (21-32); Bilirubin Total 0.2 mg/dL (0.2-1.0); Ferritin 334.6 ng/mL (8-388); Glucose Level 106 mg/dL (74-106); Potassium 4.2 mmol/L (3.5-5.1); Sodium Level 144 mmol/L (136-145)
[2020-11-24] MEDS: ENSURE HIGH PROTEIN 237 ML CAN PO SCH (08:00)
[2020-11-24] MEDS ORDERED: APIXABAN 5 MG TABLET ONE (08:19)
[2020-11-24] MEDS: APIXABAN 5 MG TABLET PO SCH (08:55)
[2020-11-24] MEDS ORDERED: predniSONE 20 MG TAB ONE (10:28)
--- NOTE | 2020-11-24 11:08 | P.DS ---
Admission Date: 11/23/20 Discharge Date: 11/24/20 Primary Care Provider: ayad Disposition: ROUTINE DISCHARGE Reason for Admission: steroid myopathy, covid 19 - Problems (1) Steroid myopathy Current Visit: Yes Status: Acute (2) COVID-19 Current Visit: Yes Status: Acute Brief History of Present Illness: Patient was recently admitted to the hospital for covid 19. She was discharged home yesterday on prednisone and medications. Unfortunately she was very weak and not able to walk well. She had multiple complaints of nausea, vomiting and mostly weakness. As she was home alone due to quarantining her son brought her to the ER. The patient is breathing well. Hospital Course: Patient was admitted for weakness. The family was really concerned about transmission of the disease. Will discharge her home. Will have the patient follow up with Lucy Diana. Will give her some meds for nausea and reflux. Vital Signs/Physical Exam: Temp Pulse Resp BP Pulse Ox 97.8 F 73 20 112/68 98 11/24/20 07:38 11/24/20 07:38 11/24/20 07:38 11/24/20 07:38 11/24/20 07:38 General: Alert, In no apparent distress HEENT: Atraumatic, PERRLA, EOMI Neck: Supple, JVD not distended Respiratory: Clear to auscultation bilaterally, Normal air movement Cardiovascular: Regular rate/rhythm, Normal S1 S2 Gastrointestinal: Normal bowel sounds, No tenderness Musculoskeletal: No tenderness Integumentary: No rashes Neurological: Normal speech, Normal tone, Normal affect Lymphatics: No axilla or inguinal lymphadenopathy Laboratory Data at Discharge: WBC 4.20 K/uL (4.3-10.9) L 11/24/20 03:51 Hgb 10.5 g/dL (12.0-15.0) L 11/24/20 03:51 Hct 31.3 % (36.0-45.0) L 11/24/20 03:51 Plt Count 339 K/uL (152-406) 11/24/20 03:51 Sodium 144 mmol/L (136-145) 11/24/20 03:51 Potassium 4.2 mmol/L (3.5-5.1) 11/24/20 03:51 BUN 15 mg/dL (7-18) 11/24/20 03:51 Creatinine 0.46 mg/dL (0.55-1.3) L 11/24/20 03:51 Glucose 106 mg/dL (74-106) 11/24/20 03:51 Total Bilirubin 0.2 mg/dL (0.2-1.0) 11/24/20 03:51 AST 16 U/L (15-37) 11/24/20 03:51 ALT 22 U/L (12-78) 11/24/20 03:51 Alkaline Phosphatase 42 U/L (45-117) L 11/24/20 03:51 Home Medications: Meclizine HCl [Antivert*] 25 mg PO Q6H PRN #120 tab 03/21/13 Aspirin Chewable [Aspirin Chewable*] 162 mg PO DAILY #30 tab.chew 09/16/16 Albuterol Inhaler [Ventolin Inhaler*] 2 puff IH Q6H PRN #1 hfa.aer.ad 11/22/20 Ascorbic Acid [Vitamin C*] 500 mg PO QID #120 tablet 11/22/20 Benzonatate [Tessalon Perle] 200 mg PO TID #60 cap 11/22/20 Cholecalciferol (Vitamin D3) [Vitamin D 1000 Iu Tab*] 4,000 unit PO DAILY #30 tab 11/22/20 Famotidine [Pepcid*] 20 mg PO BID #60 tab 11/22/20 Melatonin 5 mg PO BEDTIME #30 tablet 11/22/20 Thiamine HCl [Vitamin B-1*] 100 mg PO BID #60 tablet 11/22/20 Zinc Sulfate [Zinc Sulfate*] 220 mg PO DAILY #30 cap 11/22/20 predniSONE [Prednisone*] 20 mg PO BID #20 tab 11/22/20 Pantoprazole [Protonix Tab*] 20 mg PO DAILY 15 Days #15 tab 11/24/20 Promethazine Tab [Phenergan] 12.5 mg PO Q6HP PRN 15 Days #15 tab 11/24/20 New Medications: Promethazine Tab [Phenergan] 12.5 mg PO Q6HP PRN 15 Days #15 tab PRN Reason: Nausea / Vomiting Pantoprazole [Protonix Tab*] 20 mg PO DAILY 15 Days #15 tab Diet: [facility] Activity: Ad olesya Followup: NONE,NONE [Primary Care Provider] - Ute Diana FNP BC [ALLIED HEALTH PROFESSIONAL] - 1 Week Physician Review: Patient Assessed, Agree with Above Assessment and Plan Time spent managing pt's care (in minutes): 35
[2020-11-24 11:27] VITALS: BP 101/59; TEMP 98.8
[2020-11-24 12:59] VITALS: O2SAT 89
== END 2020-11-24 13:02 | disposition home health service (06) ==
LOC: ER 04:09 → ERHOLD 08:39
PROVIDERS: ADMIT Hospitalist; ATTEND Internal Medicine
DX: G72.0 Drug-induced myopathy (principal); T38.0X5A Adverse effect of glucocorticoids and synthetic analogues, initial encounter; U07.1 COVID-19; J12.82 Pneumonia due to coronavirus disease 2019; E86.0 Dehydration; Z79.82 Long term (current) use of aspirin
CPT/HCPCS: 96361; 93005; 85025 ×2; 80048; 36415; 85379; 82728 ×2; 80053; 86140 ×2; 71045; 96360; 99285; U0003; J7030 ×3; J2930; G0378 ×3; J7512